=== PATIENT | female | born 1960 | race Caucasian/White ===

== ENCOUNTER 2018-01-31 11:37 | Inpatient (IN) ==
--- NOTE | 2018-01-31 12:02 | Emergency Department Note ---
Disposition Clinical Impression: Acute nontraumatic kidney injury, Bladder cancer metastasized to intra- abdominal lymph nodes Hydronephrosis Qualifiers: Hydronephrosis type: unspecified Qualified Code(s): N13.30 - Unspecified hydronephrosis Disposition: Admitted As Inpatient Condition: Fair Referrals: Robbi Laura MD [Primary Care Provider] - Forms: ED Satisfaction Letter Time of Disposition: 14:41 General Adult HPI - General Chief complaint: ED Recheck/Abnormal Lab/Rx Stated complaint: Abnormal Labs Time Seen by Provider: 01/31/18 11:47 Nursing Notes Reviewed: Yes Vital Signs Reviewed: Yes - History of Present Illness HPI Narrative: Patient's a 57-year-old female with history of bladder cancer who presents from oncology office with concern for creatinine of 6.79. Patient states that recently she has felt nauseated with vomiting and decreased oral intake. She is undergoing chemotherapy, with plan for second round of chemotherapy today. She states she states has been making only minimal urine and earlier this week there was a pink tinge to her urine. Otherwise she denies any chest pain, shortness breath, fever Pain Scale: 7 - Related Data Home Medications Medication Instructions Recorded Confirmed RX: Albuterol Sulfate [Ventolin 2 puff IH Q6H PRN 11/20/17 01/31/18 Hfa] RX: Fluticasone Propionate Nasal 1 spr NS DAILY PRN 11/20/17 01/31/18 [Flonase] RX: Loratadine [Claritin] 10 mg PO DAILY PRN 11/20/17 01/31/18 RX: Tiotropium [place] [Spiriva 1 puff IH DAILY 11/20/17 01/31/18 Respimat] RX: Omeprazole 20 mg PO DAILY 01/31/18 01/31/18 Previous Rx's Medication Instructions Recorded Morphine Sulfate SR (12 HR) [MS 1 tab PO Q12HR 30 Days #60 tab 12/28/17 Contin] Prochlorperazine Maleate 10 mg PO Q6HR PRN #30 tablet 01/03/18 [Compazine] RX: Magic Mouthwash 5 ml PO Q4H PRN #240 ml 01/03/18 RX: Ondansetron ODT [Zofran ODT] 4 mg SL Q6HR #20 tab.rapdis 10/04/18 Ondansetron [Zofran] 8 mg PO Q8HR PRN #30 tablet 01/10/18 Cholecalciferol (Vitamin D3) 50,000 unit PO QWEEK #12 capsule 01/21/18 [Vitamin D] RX: Oxycodone HCl [Roxybond] 15 mg PO Q8H PRN 30 Days #90 01/31/18 tablet.orl Allergies Allergy/AdvReac Type Severity Reaction Status Date / Time adhesive Allergy Unknown Hives Verified 01/31/18 13:26 Sulfa (Sulfonamide Allergy Unknown Hives Verified 01/31/18 13:26 Antibiotics) Past Medical History - Past Medical History Medical history: Reports: cancer, thyroid disease Psychiatric history: Reports: anxiety, bipolar, depression, other - Social History Smoking Status: Current every day smoker Smokeless Tobacco Status: No Alcohol use: Reports: occasionally Drug use: Reports: none, prescription drug abuse Physical Exam - General Limitations: no limitations General appearance: alert, anxious, cachectic - Head Head exam: atraumatic, normocephalic - Eye Eye exam: Present: normal appearance - ENT ENT exam: mucous membranes dry, other (Poor dentition) - Neck Neck exam: Present: normal inspection - Chest Chest inspection: Absent: tenderness - Respiratory Respiratory exam: Present: normal lung sounds bilaterally. Absent: respiratory distress, wheezes - Cardiovascular Cardiovascular exam: Present: regular rate, normal rhythm, normal heart sounds - Abdominal Exam Abdominal exam: Present: soft, Non-Tender, normal bowel sounds. Absent: distention, guarding, rebound - Extremities Exam Extremities exam: Present: normal inspection, pedal edema - Neurological Exam Neurological exam: Present: alert, oriented X3, normal gait - Psychiatric Psychiatric exam: Present: normal mood, anxious - Expanded Psychiatric Exam Expanded psych exam: Present: restlessness - Skin Skin exam: Present: warm, dry, intact Course - Reevaluation(s) Time: 14:21 Time: 14:41 - Consultations Consultation #1: Discussed case with Dr. Fernandez, urology who will evaluate the patient on admission. Requests PT/INR. Time: 14:21 Consultation #2: Discussed case with Dr. Ascencio, carrier associate who will evaluate the patient Time: 14:26 Consultation #3: Discussed case with hospitalist, Dr. Young who will admit the patient Time: 14:42 Vital Signs Temperature 98 F 01/31/18 11:41 Pulse Rate 107 01/31/18 11:41 Respiratory Rate 22 01/31/18 11:41 Blood Pressure 162/113 01/31/18 11:41 O2 Sat by Pulse Oximetry 99 01/31/18 11:41 Temperature 98 F 01/31/18 12:11 Pulse Rate 86 01/31/18 12:59 Respiratory Rate 18 01/31/18 12:59 Blood Pressure 163/106 01/31/18 12:59 O2 Sat by Pulse Oximetry 99 01/31/18 12:59 Oxygen Delivery Oxygen Delivery Room Air Medical Decision Making - MDM Narrative Medical decision making narrative: 57-year-old female with bladder cancer and new onset right-sided hydronephrosis and acute kidney injury with creatinine up to 6.7. Her lab results are otherwise unremarkable. This is likely a combination of prerenal and post renal pathology given her dehydrated status as well as obstructive pathology. We have given gentle bolus of 500 mL in the emergency department and controlled her nausea with Phenergan. I discussed the case with urology, Dr. Fernandez as well as nephrology, Dr. Ascencio who will assess the patient for further intervention. Patient will require admission and discussed the case with hospitalist, Dr. Young who has accepted the patient. The patient agrees with and understands course of treatment plan including plan for admission. All questions answered. - Medical Records Medical records reviewed: Yes I reviewed the patient's medical records. - Lab Data Lab results reviewed: Yes I reviewed the patient's lab results. Lab Results 01/31/18 01/31/18 Range/Units 12:30 14:40 PT 10.9 (9.4-12.1) Seconds INR 1.0 Urine Color Yellow (Yellow) Urine Clarity Turbid A (Clear) Urine pH 8.0 (5.0-8.0) pH Units Ur Specific [place] < 1.005 L (1.010-1.025) Urine Protein 100 H (Neg-Trace) mg/dL Urine Glucose (UA) Normal (Normal) mg/dL Urine Ketones Negative (Negative) mg/dL Urine Blood Large H (Negative) Urine Nitrite Negative (Negative) Urine Bilirubin Negative (Negative) Urine Urobilinogen Normal (Normal) mg/dL Ur Leukocyte Esterase Large H (Negative) Urine Microscopic RBC Present (0-3) per hpf Urine Microscopic WBC TNTC H (0-3) per hpf Ur Squamous Epith Cells Many H (None-Few) per lpf Ur Transition Epith Cell Present (None-Few) per hpf Ur Renal Epithelial Cell Present (None-Few) per hpf Urine Bacteria Many H (None-Few) per hpf Ur Culture Indicated? NO. A (NO) - Radiology Data Radiology results reviewed: Yes I reviewed the patient's radiology results. Abdomen/Pelvis CT 01/31/18 12:59 IMPRESSION: 1. Irregular bladder wall thickening compatible with known bladder cancer with interval development of right hydroureteronephrosis. 2. Chronic left hydroureteronephrosis. 3. Progression skeletal metastasis as discussed above with pathologic fracture through the T12 vertebral body. 4. Retroperitoneal lymphadenopathy which is difficult to measure but appears to have worsened. Contrast enhanced CT scan abdomen and pelvis would be helpful for further evaluation. D/ / Caesar Lizama MD / Caesar Lizama MD Interpreting Provider: Caesar Lizama MD
--- NOTE | 2018-01-31 12:08 | Emergency Department Note ---
Disposition Clinical Impression: Hydronephrosis, Acute nontraumatic kidney injury, Bladder cancer metastasized to intra-abdominal lymph nodes Disposition: Admitted As Inpatient Condition: Fair General Adult HPI - General Chief complaint: ED Recheck/Abnormal Lab/Rx Stated complaint: Abnormal Labs Time Seen by Provider: 01/31/18 11:47 - History of Present Illness Pain Scale: 7 - Related Data Home Medications Medication Instructions Recorded Confirmed RX: Albuterol Sulfate [Ventolin 2 puff IH Q6H PRN 11/20/17 01/31/18 Hfa] RX: Fluticasone Propionate Nasal 1 spr NS DAILY PRN 11/20/17 01/31/18 [Flonase] RX: Loratadine [Claritin] 10 mg PO DAILY PRN 11/20/17 01/31/18 RX: Tiotropium [place] [Spiriva 1 puff IH DAILY 11/20/17 01/31/18 Respimat] RX: Omeprazole 20 mg PO DAILY 01/31/18 01/31/18 Previous Rx's Medication Instructions Recorded Morphine Sulfate SR (12 HR) [MS 1 tab PO Q12HR 30 Days #60 tab 12/28/17 Contin] Prochlorperazine Maleate 10 mg PO Q6HR PRN #30 tablet 01/03/18 [Compazine] RX: Magic Mouthwash 5 ml PO Q4H PRN #240 ml 01/03/18 RX: Ondansetron ODT [Zofran ODT] 4 mg SL Q6HR #20 tab.rapdis 01/03/18 Ondansetron [Zofran] 8 mg PO Q8HR PRN #30 tablet 01/10/18 Cholecalciferol (Vitamin D3) 50,000 unit PO QWEEK #12 capsule 01/21/18 [Vitamin D] RX: Oxycodone HCl [Roxybond] 15 mg PO Q8H PRN 30 Days #90 01/31/18 tablet.orl Allergies Allergy/AdvReac Type Severity Reaction Status Date / Time adhesive Allergy Unknown Hives Verified 01/31/18 13:26 Sulfa (Sulfonamide Allergy Unknown Hives Verified 01/31/18 13:26 Antibiotics) Past Medical History - Past Medical History Medical history: Reports: cancer, thyroid disease Psychiatric history: Reports: anxiety, bipolar, depression, other - Social History Smoking Status: Current every day smoker Smokeless Tobacco Status: No Alcohol use: Reports: occasionally Drug use: Reports: none, prescription drug abuse Course Vital Signs Temperature 98 F 01/31/18 11:41 Pulse Rate 107 01/31/18 11:41 Respiratory Rate 22 01/31/18 11:41 Blood Pressure 162/113 01/31/18 11:41 O2 Sat by Pulse Oximetry 99 01/31/18 11:41 Temperature 98.4 F 01/31/18 20:20 Pulse Rate 85 01/31/18 20:20 Respiratory Rate 16 01/31/18 20:20 Blood Pressure 144/99 01/31/18 20:20 O2 Sat by Pulse Oximetry 97 01/31/18 20:20 Oxygen Delivery Oxygen Delivery Room Air Medical Decision Making - Lab Data Result diagrams: 01/31/18 19:46 Lab Results 01/31/18 01/31/18 Range/Units 12:30 14:40 PT 10.9 (9.4-12.1) Seconds INR 1.0 Urine Color Yellow (Yellow) Urine Clarity Turbid A (Clear) Urine pH 8.0 (5.0-8.0) pH Units Ur Specific [place] < 1.005 L (1.010-1.025) Urine Protein 100 H (Neg-Trace) mg/dL Urine Glucose (UA) Normal (Normal) mg/dL Urine Ketones Negative (Negative) mg/dL Urine Blood Large H (Negative) Urine Nitrite Negative (Negative) Urine Bilirubin Negative (Negative) Urine Urobilinogen Normal (Normal) mg/dL Ur Leukocyte Esterase Large H (Negative) Urine Microscopic RBC Present (0-3) per hpf Urine Microscopic WBC TNTC H (0-3) per hpf Ur Squamous Epith Cells Many H (None-Few) per lpf Ur Transition Epith Cell Present (None-Few) per hpf Ur Renal Epithelial Cell Present (None-Few) per hpf Urine Bacteria Many H (None-Few) per hpf Ur Culture Indicated? NO. A (NO) Attestation Statement - Attestation Attestation: I examined this patient and my medical decision-making was reviewed with the Resident Physician. I agree with the documented findings, disposition and treatment plan as described except to the extent set forth below. [id number] time provided Patient presents after having an outpatient elevated creatinine. She has a recent history of bladder cancer. She is anxious appearing on exam
[2018-01-31] MEDS ORDERED: 0.9 % Sodium Chloride 500 ML IVC ONE (12:18)
[2018-01-31 12:59] LABS: Bilirubin,Urine Negative (Negative); Blood,Urine Large (Negative); Clarity,Urine Turbid (Clear); Color,Urine Yellow (Yellow); Glucose,Urine (UA) Normal (Normal); Ketones,Urine Negative (Negative); Leukocyte Esterase,Urine Large (Negative); Nitrite,Urine Negative (Negative); Protein,Urine 100 mg/dL (Neg-Trace); Specific Gravity,Urine < 1.005 (1.010-1.025); Urobilinogen,Urine Normal (Normal)
[2018-01-31 13:02] LABS: Bacteria,Urine Many per hpf (None-Few); Squamous Epithelial Cell,Urine Many per lpf (None-Few); WBC,Urine TNTC per hpf (0-3)
[2018-01-31 13:20] LABS: RBC,Urine Present per hpf (0-3)
[2018-01-31 13:21] LABS: Renal Epithelial Cells,Urine Present per hpf (None-Few); Transitional Epi Cells,Urine Present per hpf (None-Few)
[2018-01-31] MEDS ORDERED: *HR* Promethazine 25 MG/ML VIAL IVP ONE (14:29)
[2018-01-31] MEDS ORDERED: Naloxone 0.4 MG/ML INJ IVP PRN (14:46)
[2018-01-31] MEDS ORDERED: *HR* OxyCODONE Immed Rel 5 MG TABLET PO PRN (14:46)
[2018-01-31] MEDS ORDERED: *HR* HYDROcodone/Acet 5/325 mg TABLET PO PRN (14:46)
[2018-01-31] MEDS ORDERED: *HR* Promethazine 25 MG/ML VIAL IVP PRN (14:46)
[2018-01-31] MEDS ORDERED: Ondansetron 4 MG/2 ML VIAL IVP PRN (14:46)
[2018-01-31] MEDS ORDERED: Acetaminophen 325 MG TABLET PO PRN ×2 (14:46)
[2018-01-31] MEDS ORDERED: Magic Mouthwash 10 ML UD Cup PO PRN (14:49)
[2018-01-31] MEDS ORDERED: Fluticasone Propionate Nasal 50 MCG/SPRAY BOTTLE NS PRN (14:49)
[2018-01-31] MEDS ORDERED: Loratadine 10 MG TABLET PO PRN (14:49)
[2018-01-31 15:08] LABS: Prothrombin Time 10.9 Seconds (9.4-12.1)
--- NOTE | 2018-01-31 15:09 | Urology - Consult Note ---
Addendum entered and electronically signed by Juanjo Fernandez MD 01/31/18 19:08: Patient was seen and examined with the physicians spa assistant manager. I agree with her assessment and plan. The patient is a 57-year-old woman who is well known to the urology service with metastatic urothelial cancer. She has had chronic left hydronephrosis, but now has new onset right hydronephrosis. Her creatinine has quickly risen to 6.79. She is otherwise hemodynamically stable. Her volume status is okay. Given the severity of the cancer in her bladder, I think attempts at bilateral ureteral stent placement will not be successful. Therefore, I recommend proceeding with bilateral nephrostomy tube placements. I discussed this procedure in detail with the patient. Interventional radiology has been counseled to and is aware. I answered all of her questions about the expected course of the nephrostomy tubes. She understands that an attempt may be made in the future to internalize with ureteral stents placed antegrade. However, given her cancer the stents could obstruct and could require her to have nephrostomy tubes replaced. I did my best to answer all of her questions. We will continue to follow along. Original Note: Date of Encounter: 01/31/18 Time of Encounter: 15:07 - Assessment and Plan (1) Hydronephrosis Current Visit: Yes Status: Acute Assessment and plan: Patient is a 57-year-old female who presents the history of bilateral severe hydronephrosis. Reviewed CT findings and abnormal laboratory findings with patient at bedside. Reviewed operative note from Dr. Patton regarding invisibility of left ureteral orifice. Patient is being admitted and will likely undergo bilateral nephrostomy tube placement for immediate decompression. We will further discuss and evaluate for possible bilateral antegrade stent placement. Patient will remain nothing by mouth after midnight. We will proceed with consult interventional radiology. Qualifiers: Hydronephrosis type: unspecified Qualified Code(s): N13.30 - Unspecified hydronephrosis (2) Metastatic urothelial carcinoma Current Visit: Yes Status: Acute Assessment and plan: Patient is a 57-year-old female who presents with the history of metastatic urothelial carcinoma and bilateral severe hydronephrosis. Patient is currently being treated by [facility] and is on palliative care. Discussed options with patient and explained retrograde stent placement may be very difficult or unsuccessful due to invisibility of left ureteral orifice and bladder tumor. Patient verbalizes understanding, and agrees to interventional radiology consult. Urology CN:LUCIANO Consult date: 01/31/18 Reason for consult Urology: Hydronephrosis (severe bilateral hydronephrosis, bladder cancer) History of present illness: Patient is a 57-year-old female who presents with a history of metastatic urothelial carcinoma. Patient is being treated by medical oncology at [facility]. Patient presented to oncology appointment today and complained of fatigue, nausea, vomiting and decreased urine output. Patient's oncologist ordered labs and found a markedly elevated creatinine level of 6.79 and GFR of 6. Patient was sent directly to the emergency department for further evaluation. Patient is status post transurethral resection of bladder tumor on 11/20/2017 and status post positive lymph node biopsy on 12/20/2017. Patient is currently resting comfortably in no apparent distress and states Phenergan alleviating nausea and vomiting. Patient denies fever, chills, flank pain, gross hematuria. Past Med Surg Social Fam HX - Past Medical History Medical history: cancer, thyroid disease Additional medical history: bladder CA Psychiatric history: anxiety, bipolar, depression, other - Past Surgical History Additional surgical history: tonsilectomy. peg tube - Social History Smoking Status: Current every day smoker Smokeless Tobacco Status: No Alcohol use: occasionally Drug use: none, prescription drug abuse Medications and Allergies Albuterol Sulfate [Ventolin Hfa] 2 puff IH Q6H PRN 11/20/17 [History] Fluticasone Propionate Nasal [Flonase] 1 spr NS DAILY PRN 11/20/17 [History] Loratadine [Claritin] 10 mg PO DAILY PRN 11/20/17 [History] Tiotropium [place] [Spiriva Respimat] 1 puff IH DAILY 11/20/17 [History] Morphine Sulfate SR (12 HR) [MS Contin] 1 tab PO Q12HR 30 Days #60 tab 12/28/17 [Rx] Magic Mouthwash 5 ml PO Q4H PRN #240 ml 01/03/18 [Rx] Ondansetron ODT [Zofran ODT] 4 mg SL Q6HR #20 tab.rapdis 01/03/18 [Rx] Prochlorperazine Maleate [Compazine] 10 mg PO Q6HR PRN #30 tablet 01/03/18 [Rx] Ondansetron [Zofran] 8 mg PO Q8HR PRN #30 tablet 01/10/18 [Rx] Cholecalciferol (Vitamin D3) [Vitamin D] 50,000 unit PO QWEEK #12 capsule 01/21/18 [Rx] Omeprazole 20 mg PO DAILY 01/31/18 [History] Oxycodone HCl [Roxybond] 15 mg PO Q8H PRN 30 Days #90 tablet.orl 01/31/18 [Rx] Allergy/AdvReac Type Severity Reaction Status Date / Time adhesive Allergy Unknown Hives Verified 01/31/18 13:26 Sulfa (Sulfonamide Allergy Unknown Hives Verified 01/31/18 13:26 Antibiotics) Review of Systems - Constitutional fatigue, no chills, no fever(s) - EENT Nose, mouth and throat: no dizziness, no headache(s), no sore throat - Cardiovascular no chest pain, no diaphoresis, no dyspnea - Respiratory no cough, no dyspnea - Gastrointestinal nausea, vomiting, no abdominal pain - Musculoskeletal no back pain, no muscle weakness - Integumentary no rash, no swelling - Neurological no confusion, no syncope - Psychiatric no anxiety, no confusion - Hematologic/Lymphatic no easy bleeding, no easy bruising - Allergic/Immunologic no throat swelling, no wheezing Exam Initial Vital Signs Temp Pulse Resp BP Pulse Ox 98 F 107 22 162/113 99 01/31/18 11:41 01/31/18 11:41 01/31/18 11:41 01/31/18 11:41 01/31/18 11:41 - General physical appearance Present: no distress, chronically ill - Eyes Present: PERRL, normal ocular movement - ENT Present: normal nares, no hearing loss, no congestion - Neck Present: no masses, trachea midline - Respiratory Present: normal respiratory effort - Cardiovascular Cardiovascular exam IM: RRR - Abdomen Abdomen: Present: soft, non tender - Integumentary Present: no rash, no abnormal pigmentation - Neurologic Present: normal coordination, other - Musculoskeletal Present: other (normal posture ) - Additional Findings patient seems very anxious and talkative Urology Results - Labs Abnormal lab results Urine Clarity Turbid (Clear) A 01/31/18 12:30 Ur Specific [place] < 1.005 (1.010-1.025) L 01/31/18 12:30 Urine Protein 100 mg/dL (Neg-Trace) H 01/31/18 12:30 Urine Blood Large (Negative) H 01/31/18 12:30 Ur Leukocyte Esterase Large (Negative) H 01/31/18 12:30 Urine Microscopic WBC TNTC per hpf (0-3) H 01/31/18 12:30 Ur Squamous Epith Cells Many per lpf (None-Few) H 01/31/18 12:30 Urine Bacteria Many per hpf (None-Few) H 01/31/18 12:30 Ur Culture Indicated? NO. (NO) A 01/31/18 12:30 All other labs normal. - Imaging CT scan - abdomen: report reviewed, image reviewed CT scan - pelvis: report reviewed, image reviewed Consult Discharge Plan - Plan Referrals: Robbi Laura MD [Primary Care Provider] -
--- NOTE | 2018-01-31 15:18 | Nephrology Consult Note ---
Date of Encounter: 01/31/18 Time of Encounter: 15:15 Assessment and Plan (1) AYDEN (acute kidney injury) Current Visit: Yes Status: Acute Suspect decreased kidney function from hydronephrosis Awaiting urology interventions-suspect kidney function will improve once obstructions gone (2) Hydronephrosis Current Visit: Yes Status: Acute per urology team Qualifiers: Hydronephrosis type: unspecified Qualified Code(s): N13.30 - Unspecified hydronephrosis (3) Bladder cancer metastasized to intra-abdominal lymph nodes Current Visit: Yes Status: Acute per oncology team History of Present Illness - Reason for Consult Consult date: 01/31/18 - Chief Complaint hydronephrosis, AYDEN - History of Present Illness Ms Eldridge is a 57 year old lady with a history of bladder cancer and chronic left hydroureteronephrosis who was sent over the [facility] ED for a Scr of 6.79. No history of CKD. CT scan shows a new left sided hydronehprosis and urology has been consults. ED report states urology plans to place bilateral tubes with possible future stents. Past Med Surg Social Fam HX - Past Medical History Medical history: cancer, thyroid disease Additional medical history: bladder CA Psychiatric history: anxiety, bipolar, depression, other - Past Surgical History Additional surgical history: tonsilectomy. peg tube - Social History Smoking Status: Current every day smoker Smokeless Tobacco Status: No Alcohol use: occasionally Drug use: none, prescription drug abuse Medications and Allergies Albuterol Sulfate [Ventolin Hfa] 2 puff IH Q6H PRN 11/20/17 [History] Fluticasone Propionate Nasal [Flonase] 1 spr NS DAILY PRN 11/20/17 [History] Loratadine [Claritin] 10 mg PO DAILY PRN 11/20/17 [History] Tiotropium [place] [Spiriva Respimat] 1 puff IH DAILY 11/20/17 [History] Morphine Sulfate SR (12 HR) [MS Contin] 1 tab PO Q12HR 30 Days #60 tab 12/28/17 [Rx] Magic Mouthwash 5 ml PO Q4H PRN #240 ml 01/03/18 [Rx] Ondansetron ODT [Zofran ODT] 4 mg SL Q6HR #20 tab.rapdis 01/03/18 [Rx] Prochlorperazine Maleate [Compazine] 10 mg PO Q6HR PRN #30 tablet 01/03/18 [Rx] Ondansetron [Zofran] 8 mg PO Q8HR PRN #30 tablet 01/10/18 [Rx] Cholecalciferol (Vitamin D3) [Vitamin D] 50,000 unit PO QWEEK #12 capsule 01/21/18 [Rx] Omeprazole 20 mg PO DAILY 01/31/18 [History] Oxycodone HCl [Roxybond] 15 mg PO Q8H PRN 30 Days #90 tablet.orl 01/31/18 [Rx] Allergy/AdvReac Type Severity Reaction Status Date / Time adhesive Allergy Unknown Hives Verified 01/31/18 13:26 Sulfa (Sulfonamide Allergy Unknown Hives Verified 01/31/18 13:26 Antibiotics) Review of Systems All Systems: reviewed and no additional remarkable complaints except as stated Constitutional: no fatigue, no malaise Cardiovascular: no chest pain, no dyspnea Respiratory: no cough, no wheezing Gastrointestinal: no diarrhea Neurological: no behavioral changes Exam - Vital Signs Vital signs: Initial Vital Signs Temp Pulse Resp BP Pulse Ox 98 F 107 22 162/113 99 01/31/18 11:41 01/31/18 11:41 01/31/18 11:41 01/31/18 11:41 01/31/18 11:41 Vital Signs - Last 8 Hours Temp Pulse Resp BP Pulse Ox 01/31/18 12:59 86 18 163/106 99 01/31/18 12:11 98 F 107 22 162/113 99 01/31/18 11:41 98 F 107 22 162/113 99 Intake and Output 01/30/18 01/31/18 01/31/18 23:59 07:59 15:59 Intake Total 500 / 500 Balance 500 / 500 Intake: IV Fluids 500 / 500 0.9 % Sodium Chloride 500 ML @ 500 / 500 999 mls/hr IVC .Q31M ONE Rx#: [id number] Other: Weight 46.72 kg Patient Weight 01/31/18 23:59 Weight 46.72 kg - General Appearance General appearance: well-developed, well-nourished EENT: ATNC, mucous membranes moist, hearing intact, vision intact Neck: supple Respiratory: clear Cardiology: no edema, normal S1, normal S2 Gastrointestinal: no tenderness, no guarding Integumentary: warm and dry Neurologic: alert and oriented x3 Psychiatric: mood/affect appropriate, cooperative Consult Discharge Plan - Plan Referrals: Robbi Laura MD [Primary Care Provider] -
--- NOTE | 2018-01-31 16:54 | Internal Med History&Physical ---
Date of Encounter: 01/31/18 Time of Encounter: 14:30 Internal Medicine - H&P: HPI Chief complaint: weakness, abnormal labs Admitted From: Emergency Dept Plans for Post Hospital Care: Home History of present illness: Ms. Eldridge is a 57 year old female with a known history of anxiety, bipolar, hypothyroidism and metastatic urothelial carcinoma s/p bladder tumor trans urethral resection on who is currnetly on 2nd cycle of chemo therapy pt went to see Dr. Laura for f/u regarding chemo. Her labs came back as severe AYDEN with Cr @ 6.78. She also mentioned from past one week, she has not eating well and feeling weak and lethargic. Pt was sent to our ER for further work up. Her CT of Abd and Pelvis showed irregular bladder wall thickening compatible with a known bladder cancer with internal development of right [place] ureter hydronephrosis. Also have chronic left hydronephrosis. Patient denies fever, chills, flank pain, gross hematuria. Past Med Surg Social Fam HX - Past Medical History Medical history: cancer, thyroid disease Additional medical history: bladder CA Psychiatric history: anxiety, bipolar, depression, other - Past Surgical History Additional surgical history: tonsilectomy. peg tube - Social History Smoking Status: Current every day smoker Smokeless Tobacco Status: No Alcohol use: occasionally Drug use: none, prescription drug abuse - Additional Family History Additional family history: Family hsitory reviewed and non contribuitory to current problem. Internal Medicine - H&P: Meds Albuterol Sulfate [Ventolin Hfa] 2 puff IH Q6H PRN 11/20/17 [History] Fluticasone Propionate Nasal [Flonase] 1 spr NS DAILY PRN 11/20/17 [History] Loratadine [Claritin] 10 mg PO DAILY PRN 11/20/17 [History] Tiotropium [place] [Spiriva Respimat] 1 puff IH DAILY 11/20/17 [History] Morphine Sulfate SR (12 HR) [MS Contin] 1 tab PO Q12HR 30 Days #60 tab 12/28/17 [Rx] Magic Mouthwash 5 ml PO Q4H PRN #240 ml 01/03/18 [Rx] Ondansetron ODT [Zofran ODT] 4 mg SL Q6HR #20 tab.rapdis 01/03/18 [Rx] Prochlorperazine Maleate [Compazine] 10 mg PO Q6HR PRN #30 tablet 01/03/18 [Rx] Ondansetron [Zofran] 8 mg PO Q8HR PRN #30 tablet 01/10/18 [Rx] Cholecalciferol (Vitamin D3) [Vitamin D] 50,000 unit PO QWEEK #12 capsule 01/21/18 [Rx] Omeprazole 20 mg PO DAILY 01/31/18 [History] Oxycodone HCl [Roxybond] 15 mg PO Q8H PRN 30 Days #90 tablet.orl 01/31/18 [Rx] Allergy/AdvReac Type Severity Reaction Status Date / Time adhesive Allergy Unknown Hives Verified 01/31/18 13:26 Sulfa (Sulfonamide Allergy Unknown Hives Verified 01/31/18 13:26 Antibiotics) All Systems PM: A 10-system review of systems was performed and is negative for pertinent findings except as documented above in the HPI. Review of systems: All the systems are reviewed everything is benign except the systems and symptoms I mentioned in the history of present illness - Constitutional Vitals: Temp Pulse Resp BP Pulse Ox 98 F 86 18 163/106 99 01/31/18 12:11 01/31/18 12:59 01/31/18 12:59 01/31/18 12:59 01/31/18 12:59 General appearance: Present: cooperative, mild distress (Pain), A&O X 3, answers questions appropriately Exam: See below - Head Head exam: Present: atraumatic, normal inspection - Neck Neck exam general surgery: Present: supple - Respiratory Respiratory exam: Present: decreased breath sounds. Absent: rales, respiratory distress, rhonchi, wheezes - Cardiovascular Cardiovascular exam: Present: RRR, +S1, +S2. Absent: tachycardia - GI/Abdominal GI/Abdominal exam: Present: normal bowel sounds, soft. Absent: rebound, rigid, tenderness - Extremities Exam Extremities exam: Absent: calf tenderness, pedal edema, tenderness - Back Exam Back exam: Present: CVA tenderness (L). Absent: CVA tenderness (R) - Neurological Exam Neurological exam: Present: alert, oriented X3 - Psychiatric Psychiatric exam: Present: anxious, depressed - Skin Skin exam: Absent: rash Internal Med - H&P Results - Labs Labs: Urine 01/31/18 Range/Units 12:30 Urine Color Yellow (Yellow) Urine Clarity Turbid A (Clear) Urine pH 8.0 (5.0-8.0) pH Units Ur Specific [place] < 1.005 L (1.010-1.025) Urine Protein 100 H (Neg-Trace) mg/dL Urine Glucose (UA) Normal (Normal) mg/dL - Impressions ITS Impressions Abdomen/Pelvis CT 01/31/18 12:59 IMPRESSION: 1. Irregular bladder wall thickening compatible with known bladder cancer with interval development of right hydroureteronephrosis. 2. Chronic left hydroureteronephrosis. 3. Progression skeletal metastasis as discussed above with pathologic fracture through the T12 vertebral body. 4. Retroperitoneal lymphadenopathy which is difficult to measure but appears to have worsened. Contrast enhanced CT scan abdomen and pelvis would be helpful for further evaluation. D/ / Caesar Lizama MD / Caesar Lizama MD Interpreting Provider: Caesar Lizama MD - Assessment and plan (1) AYDEN (acute kidney injury) Current Visit: Yes Status: Acute Assessment and plan: Admit the pt into tele her AK multifactorial with hypovolemia and obstructive uropathy started on IV hydration provide nephrotoxic medications touch up painter hand consulted- appreciate recommendations strict I & O close f/u on on Cr and electrolytes (2) Obstructive uropathy Current Visit: Yes Status: Acute Assessment and plan: Due to bladder cancer Talked to urology -- Will ask IR to place b/l nephrostomy tubes initially later possible stent placement by Urology appreciate Urology recommendations (3) Bladder cancer metastasized to intra-abdominal lymph nodes Current Visit: Yes Status: Acute Assessment and plan: Seems to be overall poor prognosis - stage 4 bladder cancer with Skeletal metastasis -T12 fracture Resumed home pain medication MS Contin + break through pain medication Heme Onc consulted (4) Hydronephrosis Current Visit: Yes Status: Acute Qualifiers: Hydronephrosis type: unspecified Qualified Code(s): N13.30 - Unspecified hydronephrosis (5) Metastatic urothelial carcinoma Current Visit: Yes Status: Acute (6) T12 vertebral fracture Current Visit: Yes Status: Acute Assessment and plan: Due to metastasis PT / OT Pain management Qualifiers: Encounter type: initial encounter Fracture type: closed Qualified Code(s): S22.089A - Unspecified fracture of T11-T12 vertebra, initial encounter for closed fracture - Time Spent With Patient Total time spent is greater than 50% in coordination of care (as documented) at patient's floor/unit and/or counseling patient:
--- NOTE | 2018-01-31 19:18 | Oncology Inp Consult Note ---
Date of Encounter: 01/31/18 Time of Encounter: 19:13 Assessment and Plan (1) Bladder cancer metastasized to intra-abdominal lymph nodes Status: Acute Assessment and plan: Metastatic Urothelial cancer T2, NX, M1 stage IV. PDL one high expression TPS score 90% PDL 90% positive Bone metastasis mainly in the L5 S1 also in the bilateral ribs This is stage IV disease and cannot be cured. First-line treatment Intent: Palliative Cycle repeated every 3 weeks Number of cycles: 6 Cisplatin 60 mg/m IV day 1 Gemzar 1 g IV day 1 and 8 She completed cycle 1 on 01/17/2018 Currently admitted with acute kidney injury creatinine around 7. She is awaiting percutaneous bilateral nephrostomy tube placement. Urology and nephrology following I discussed with her in detail about importance of bilateral nephrostomy to preserve her kidney function CAT scan abdomen and pelvis 01/31/2018 showed possible progression of lymphadenopathy. Overall prognosis poor. Given the amount of renal insufficiency may switch to second line immunotherapy Atezolizumab or Pembrolizumab (2) Obstructive uropathy Status: Acute Assessment and plan: Bilateral obstructive uropathy with acute kidney injury. She also has urosepsis. Currently on IV Rocephin. Blood cultures and urine cultures pending - Data of Consult Patient: known to practice within the last 3 years Requesting Physician: Irina Jay MD Primary Care Provider: Robbi Laura - Consult Narrative Reason for consult: Metastatic bladder cancer History of present illness: Ms. Eldridge is a 57 year old female Diagnosis: Urothelial/bladder cancer PT2, NX, M1 stage IV Oncological history She is developed hematuria did not resolve with 3 courses of antibiotics Cystoscopy Dr. Patton 11/20/2017 Showed large tumor left lateral wall standing to urethra about 7 cm- resected Also small tumors in the right lateral wall apparently not resected Pathology bladder tumor transurethral resection on 11/20/2017 Showed high-grade urothelial carcinoma with squamous differentiation Invading detrusor muscle. Focal suspicion for lymphovascular invasion Retroperitoneal lymph node biopsy 12/20/2017 showed metastatic urothelial carcinoma squamous differentiation similar to the bladder primary PDL one testing showed TPS score more than 90% CT abdomen and pelvis with and without contrast on 11/26/2017 Severe left hydroureteronephrosis to the level of the left ureterovesicular junction. Delayed left nephrogram, consistent with obstructive uropathy. Retroperitoneal adenopathy, including retrocrural, periaortic, and bilateral iliac adenopathy is consistent with metastatic disease, likely related to TCC and less likely related to prior head and neck cancer. PET scan on 12/26/2017 showed metabolically active mediastinal and extensive r etroperitoneal adenopathy. 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 Concurrent chemoradiation with cisplatin 100 mg/m2, three doses 08/24/2010 to 10/13/2010, She also has a small right upper lobe lung nodule 3 mm Which is stable and is a calcified granuloma Past Medical History Medical history: Cancer - Head and Neck Surgical History tonsillectomy, PEG tube placement PSYCH History: bipolar, depression Family History: Family history includes: Mother had degenerative joint disease and father had alcohol abuse and skin cancer in the nose. Father also had heart disease. She does not speak much to either one of them. She is accompanied by her knpcla-nz-rdh, Kristi, who pretty much takes her to all of her appointments. SOCIAL HISTORY Tobacco use?: continued to smoke, trying to quit Alcohol use?: hx of alcohol abuse, sober since 2010 Drug use?: none Social history comments: Marital status: Single Occupation and status: Works for [employer] Living situation: Lives with boyfriend in [place] Past Med Surg Social Fam HX - Past Medical History Medical history: cancer, thyroid disease Additional medical history: bladder CA Psychiatric history: anxiety, bipolar, depression, other - Past Surgical History Additional surgical history: tonsilectomy. peg tube - Social History Smoking Status: Current every day smoker Smokeless Tobacco Status: No Alcohol use: occasionally Drug use: none, prescription drug abuse Medications and Allergies Albuterol Sulfate [Ventolin Hfa] 2 puff IH Q6H PRN 11/20/17 [History] Fluticasone Propionate Nasal [Flonase] 1 spr NS DAILY PRN 11/20/17 [History] Loratadine [Claritin] 10 mg PO DAILY PRN 11/20/17 [History] Tiotropium [employer] [Spiriva Respimat] 1 puff IH DAILY 11/20/17 [History] Morphine Sulfate SR (12 HR) [MS Contin] 1 tab PO Q12HR 30 Days #60 tab 12/28/17 [Rx] Magic Mouthwash 5 ml PO Q4H PRN #240 ml 01/03/18 [Rx] Ondansetron ODT [Zofran ODT] 4 mg SL Q6HR #20 tab.rapdis 01/03/18 [Rx] Prochlorperazine Maleate [Compazine] 10 mg PO Q6HR PRN #30 tablet 01/03/18 [Rx] Ondansetron [Zofran] 8 mg PO Q8HR PRN #30 tablet 01/10/18 [Rx] Cholecalciferol (Vitamin D3) [Vitamin D] 50,000 unit PO QWEEK #12 capsule 01/21/18 [Rx] Omeprazole 20 mg PO DAILY 01/31/18 [History] Oxycodone HCl [Roxybond] 15 mg PO Q8H PRN 30 Days #90 tablet.orl 01/31/18 [Rx] Allergy/AdvReac Type Severity Reaction Status Date / Time adhesive Allergy Unknown Hives Verified 01/31/18 13:26 Sulfa (Sulfonamide Allergy Unknown Hives Verified 01/31/18 13:26 Antibiotics) Oncology - Exam - Constitutional Vitals: Temp Pulse Resp BP Pulse Ox 98 F 86 16 120/82 99 01/31/18 12:11 01/31/18 12:59 01/31/18 17:11 01/31/18 17:11 01/31/18 12:59 Exam: General: Alert and oriented, mal-nourished Mental Status: Affect appropriate for circumstances HEENT: Sclerae anicteric. No mucositis or thrush. No other oral lesions or erythema. Skin: No rashes or petechiae. Lymph nodes: No cervical, supraclavicular, axillary, or inguinal adenopathy. Lungs: Clear to auscultation and percussion bilaterally. Cardiovascular: Regular rate and rhythm. No gallops, murmurs, or rubs. Abdomen: Soft, mild abdominal tenderness. Extremities: No edema. No calf swelling or tenderness. No joint deformity. Neurologic: Alert, cranial nerves II-XII intact; no focal weakness or sensory abnormalities. Oncology - Results Labs: 01/31/18 01/31/18 14:40 12:30 PT 10.9 INR 1.0 Urine Color Yellow Urine Clarity Turbid A Urine pH 8.0 Ur Specific [place] < 1.005 L Urine Protein 100 H Urine Glucose (UA) Normal Urine Ketones Negative Urine Blood Large H Urine Nitrite Negative Urine Bilirubin Negative Urine Urobilinogen Normal Ur Leukocyte Esterase Large H Urine Microscopic RBC Present Urine Microscopic WBC TNTC H Ur Squamous Epith Cells Many H Ur Transition Epith Cell Present Ur Renal Epithelial Cell Present Urine Bacteria Many H Ur Culture Indicated? NO. A Consult Discharge Plan - Plan Referrals: Robbi Laura MD [Primary Care Provider] - Inpatient Charges Provider: Dr. Sam Laura Consult - Inpatient: [id number]
[2018-01-31] MEDS: *HR* Morphine Sulfate SR (12 HR) 15 MG TABLET.ER PO SCH (19:58)
[2018-01-31] MEDS: cefTRIAXone 1,000 MG in Water for inj. (sterile) 20 ML 10 ML IVP SCH (19:58)
[2018-01-31] MEDS: 0.9 % Sodium Chloride 1,000 ML IVC SCH (19:58)
[2018-01-31 20:18] LABS: Calcium 8.2 mg/dL (8.6-10.3); Magnesium 2.1 mg/dL (1.6-2.6); Potassium 4.4 mEq/L (3.5-5.1)
[2018-02-01 02:54] LABS: Basophils % 0.3 %; Eosinophils # 0.1 K/mcL (0.0-0.6); Eosinophils % 0.8 %; Hematocrit 30.4 % (35.3-44.9); Hemoglobin 10.4 g/dL (11.5-15.4); Immature Granulocytes % 0.5 % (0-4); Lymphocytes # 0.6 K/mcL (0.6-4.6); Lymphocytes % 9.4 %; Mean Corpuscular HGB Conc 34.2 g/dL (31.6-35.5); Mean Corpuscular Hemoglobin 32.7 pg (28.0-33.3); Mean Corpuscular Volume 95.6 fL (83.0-100.0); Mean Platelet Volume 9.1 fL (9.4-12.4); Monocytes # 0.6 K/mcL (0.0-1.3); Monocytes % 9.1 %; Neutrophils # 5.3 K/mcL (1.6-8.9); Platelet Count 258 K/mcL (140-400); Red Blood Count 3.18 M/mcL (3.82-4.97); Red Cell Distribution Width 13.9 % (11.5-14.5); Segmented Neutrophils % 79.9 %
[2018-02-01 03:02] LABS: Magnesium 2.1 mg/dL (1.6-2.6); Potassium 4.3 mEq/L (3.5-5.1)
[2018-02-01] MEDS: 0.9 % Sodium Chloride 1,000 ML IVC SCH ×4 (04:11→23:31)
[2018-02-01] MEDS: *HR* Morphine Sulfate SR (12 HR) 15 MG TABLET.ER PO SCH ×2 (07:07→19:11)
[2018-02-01] MEDS ORDERED: 0.9 % Sodium Chloride 250 ML IVC PRN (07:12)
--- NOTE | 2018-02-01 07:27 | Nephrology Progress Note ---
Date of Encounter: 02/01/18 Time of Encounter: 09:45 - Assessment and Plan (1) AYDEN (acute kidney injury) Current Visit: Yes Status: Acute Severe AYDEN with progressively worsening renal failure s/p Chemo for bladder Ca with hydronephrosis. Now that it's Sunday and the AM labs demonstrate ongoing severe worsening, I also recommend starting temporary HD today with placement of a temporary HD catheter simultaneously while seeing IR for Perc Neph tubes. I've called IR and arranged this today. I also called the floor RN to have the informed consent process initiated regarding her now present indications for dialysis. (2) Hydronephrosis Current Visit: Yes Status: Acute per urology team Qualifiers: Hydronephrosis type: unspecified Qualified Code(s): N13.30 - Unspecified hydronephrosis (3) Bladder cancer metastasized to intra-abdominal lymph nodes Current Visit: Yes Status: Acute per oncology team Subjective Principal diagnosis: AYDEN Interval history: The patient was off the floor. I reviewed her labs, vitals, medication list, progress notes and previous imaging in detail. I discussed my recommendations with the floor nurse who also spoke with the patient earlier today. Objective - Vital Signs Vital signs: Vital Signs Temp Pulse Resp BP Pulse Ox 02/01/18 04:28 98.9 F 92 18 155/100 94 01/31/18 23:12 99.3 F 94 16 141/81 95 01/31/18 20:20 98.4 F 85 16 144/99 97 01/31/18 17:11 16 120/82 01/31/18 12:59 86 18 163/106 99 01/31/18 12:11 98 F 107 22 162/113 99 01/31/18 11:41 98 F 107 22 162/113 99 Intake and Output 01/31/18 01/31/18 02/01/18 15:59 23:59 07:59 Intake Total 500 / 500 1000 / 1000 Balance 500 / 500 1000 / 1000 Intake: IV Fluids 500 / 500 1000 / 1000 0.9 % Sodium Chloride 1,000 ML 1000 / 1000 @ 125 mls/hr IVC .[facility]H [facility] Rx#: [id number] 0.9 % Sodium Chloride 500 ML @ 500 / 500 999 mls/hr IVC .Q31M ONE Rx#: [id number] Other: Weight 46.72 kg 47.4 kg - General Appearance Exam: The patient was off the floor. - Lab 02/01/18 02:32 11 02:32 Most recent lab results Calcium 8.0 mg/dL (8.6-10.3) L 02/01/18 02:32 Phosphorus 7.0 mg/dL (2.7-4.5) H 02/01/18 02:32 Magnesium 2.1 mg/dL (1.6-2.6) 02/01/18 02:32 Consult Discharge Plan - Plan Referrals: Robbi Laura MD [Primary Care Provider] -
--- NOTE | 2018-02-01 08:56 | Urology Progress Note ---
Addendum entered and electronically signed by Juanjo Fernandez MD 02/01/18 14:12: Patient was seen and examined with the physician's assistant manager pt. I agree with the assessment and plan. We will proceed with bilateral nephrostomy tubes today. Urology will follow along. Appreciate nephrology workup. Original Note: Date of Encounter: 02/01/18 Time of Encounter: 07:30 - Assessment and Plan (1) Hydronephrosis Current Visit: Yes Status: Acute Assessment and plan: Patient is a 57-year-old female who presents with a history of bilateral hydronephrosis, worsening on the left and newly developed on the right. Patient's renal function is continuing to decline. Patient has refused dialysis despite consult with nephrology. Interventional radiology is planning bilateral nephrostomy tube placement later today, and patient will remain nothing by mouth. Qualifiers: Hydronephrosis type: unspecified Qualified Code(s): N13.30 - Unspecified hydronephrosis (2) Metastatic urothelial carcinoma Current Visit: Yes Status: Acute Assessment and plan: Patient is a 57-year-old female who presents with a history of metastatic urothelial carcinoma and bilateral hydronephrosis. Retrograde access is not favorable secondary to large bladder tumor and inability to locate left ureteral orifice. The tentative plan is to proceed with bilateral nephrostomy tube placement and possible antegrade ureteral stent placement at a later time. Progress Note Subjective: pain is less Narrative: Patient seen and examined sitting upright in bed in no apparent distress. Patient states she is declining nephrology recommendation of dialysis. Patient states she wishes to proceed only with nephrostomy tube placement at this time. Patient states she is not voiding. Patient denies fever, chills, flank pain, nausea, vomiting, chest pain, dyspnea. Objective Initial Vital Signs Temp Pulse Resp BP Pulse Ox 98 F 107 22 162/113 99 01/31/18 11:41 01/31/18 11:41 01/31/18 11:41 01/31/18 11:41 01/31/18 11:41 - General physical appearance Present: well developed, no distress, no pain - Respiratory Present: normal expansion, normal respiratory effort - Abdomen Present: soft, non tender - Integumentary Present: no rash, no abnormal pigmentation - Musculoskeletal Present: normal posture - Psychiatric Present: oriented to time, oriented to person, oriented to place, speech is normal, memory intact - Labs 02/01/18 02:32 02/01/18 02:32 Diabetes panel 01/31/18 02/01/18 Range/Units 19:46 02:32 Sodium 128 L 129 L (136-145) mEq/L Potassium 4.4 4.3 (3.5-5.1) mEq/L Chloride 94 L 95 L (98-107) mEq/L Carbon Dioxide 22 L 22 L (23-29) mEq/L BUN 45 H 47 H (6-20) mg/dL Creatinine 7.26 H 7.74 H (0.60-1.20) mg/dL Glucose 116 H 108 H (70-105) mg/dL Calcium 8.2 L 8.0 L (8.6-10.3) mg/dL Calcium panel 01/31/18 02/01/18 Range/Units 19:46 02:32 Calcium 8.2 L 8.0 L (8.6-10.3) mg/dL Phosphorus 7.0 H (2.7-4.5) mg/dL Pituitary panel 01/31/18 02/01/18 Range/Units 19:46 02:32 Sodium 128 L 129 L (136-145) mEq/L Potassium 4.4 4.3 (3.5-5.1) mEq/L Chloride 94 L 95 L (98-107) mEq/L Carbon Dioxide 22 L 22 L (23-29) mEq/L BUN 45 H 47 H (6-20) mg/dL Creatinine 7.26 H 7.74 H (0.60-1.20) mg/dL Glucose 116 H 108 H (70-105) mg/dL Calcium 8.2 L 8.0 L (8.6-10.3) mg/dL Adrenal panel 01/31/18 02/01/18 Range/Units 19:46 02:32 Sodium 128 L 129 L (136-145) mEq/L Potassium 4.4 4.3 (3.5-5.1) mEq/L Chloride 94 L 95 L (98-107) mEq/L Carbon Dioxide 22 L 22 L (23-29) mEq/L BUN 45 H 47 H (6-20) mg/dL Creatinine 7.26 H 7.74 H (0.60-1.20) mg/dL Glucose 116 H 108 H (70-105) mg/dL Calcium 8.2 L 8.0 L (8.6-10.3) mg/dL Consult Discharge Plan - Plan Referrals: Robbi Laura MD [Primary Care Provider] -
[2018-02-01] MEDS ORDERED: 0.9 % Sodium Chloride 500 ML ONE (09:08)
[2018-02-01] MEDS ORDERED: (Tiotropium Bromide [Spiriva Respimat] 1 PUFF) IH SCH (10:00)
[2018-02-01] MEDS ORDERED: Sennosides/Docusate Sodium TABLET PO PRN (10:06)
[2018-02-01] MEDS ORDERED: *HR* FentaNYL (PF) 100 MCG/2 ML VIAL IVP ONE (10:21)
[2018-02-01] MEDS ORDERED: *HR* Midazolam HCl 2 MG/2 ML VIAL IVP ONE ×2 (10:21→10:44)
--- NOTE | 2018-02-01 10:22 | Pre-Sedation Evaluation ---
Pre-sedation evaluation - Pre-sedation checklist Procedure: lymph node bx Recent Vitals: Last Vital Signs Temp 98.1 F 02/01/18 07:19 Pulse 95 02/01/18 07:19 Resp 20 02/01/18 07:19 BP 158/100 02/01/18 07:19 Pulse Ox 91 02/01/18 07:19 H&P (including ROS) documented in medical record: Yes Previous reaction to sedatives/anesthetics: No Dietary Status: NPO after Midnight Dentition: No loose teeth or bridges Possible difficult airway: No ASA Classification *see protocol: CLASS II-Mild systemic disease Plan of Care: Pt appropriate candidate for procedure/moderate/conscious sedation, Risks/benefits of procedure/sedation discussed w/ patient/family, If not NPO; Risk of intake outweiged by necessity to perform procedure Cardiac Registry (Cardio Only) - Clincal Frailty Scale Clinical Frailty Scale: Managing Well
[2018-02-01] MEDS: Tiotropium 18 MCG inhalation IH SCH (10:35)
[2018-02-01] MEDS ORDERED: *HR* HYDROmorphone (PF) 1 MG/ML SYRINGE IVP ONE (10:45)
[2018-02-01] MEDS ORDERED: Isovue-300 50 ML VIAL IVP ONE ×2 (10:59)
--- NOTE | 2018-02-01 11:05 | IR Procedure Note ---
Date of procedure: 02/01/18 Consent Obtained: Written consent Timeout: Correct patient and procedure verified, Correct site verified, Time out performed, Skin prep completed Indications: bilateral renal obstruction Procedure Performed: bilateral nephrostomy Was there an litigation assistant present: No Site/Technique: bilateral 10F tubes Results/Findings: Adequate placement Estimated blood loss (cc): 4 Complications: None; Tolerated procedure well Post Procedure Treatment Plan: dc to floor Specimen: none
--- NOTE | 2018-02-01 11:20 | Internal Med Progress Note ---
Hospitalist Progress Note - Encounter Date of Encounter: 02/01/18 Time of Encounter: 08:40 - Subjective Interval History: Anxious for her upcoming procedure, no fever/chills, N/V, or worsening flank pain. - Exam Vitals: Temp Pulse Resp BP Pulse Ox 98.1 F 99 20 156/93 93 02/01/18 07:19 02/01/18 10:54 02/01/18 11:04 02/01/18 11:04 02/01/18 10:54 Exam: General: Alert and oriented, not in acute distress. Cardiovascular:Normal S1 & S2, No JVD. Pulse regular. Lungs: clear to auscultation, no wheezes/rales Abdomen:Soft, non-tender, no rigidity. No CVA tenderness Extremities:No deformity or swelling Neurological:Normal cognition and motor skills. Non-focal - Assessment and Plan (1) Obstructive uropathy Current Visit: Yes Status: Acute Assessment and Plan: Due to met urothelial cancer acute on chronic on the left and acute R hydronephrosis for b/l nephrostomy tube insertion today appreciate Urology and IR input (2) Hydronephrosis Current Visit: Yes Status: Acute Assessment and Plan: as above (3) AYDEN (acute kidney injury) Current Visit: Yes Status: Acute Assessment and Plan: likely due to obstructive uropathy as above +/- pre-renal continue IV hydration avoid nephrotoxic medications crown attacher input appreciated -> offered HD but pt refused For bilateral nephrostomy tube insertion today monitor Cr and urine output (4) Metastatic urothelial carcinoma Current Visit: Yes Status: Acute Assessment and Plan: Oncology input appreciated on palliative chemo currently, may switch to 2nd line immunotherapy outpatent follow up overall prognosis remains poor (5) T12 vertebral fracture Current Visit: Yes Status: Acute Assessment and Plan: Due to metastasis PT / OT Pain management DVT Prophylaxis: SQ heparin - Time Spent with Patient Total time spent is greater than 50% in coordination of care (as documented) at patient's floor/unit and/or counseling patient: Plan of Care Discussed with: patient Internal Medicine: Result - Labs CBC & Chem 7: 02/01/18 02:32 02/01/18 02:32 Labs: Short CBC 02/01/18 Range/Units 02:32 WBC 6.6 (4.3-11.1) K/mcL Hgb 10.4 L (11.5-15.4) g/dL Hct 30.4 L (35.3-44.9) % Plt Count 258 (140-400) K/mcL Neutrophils # 5.3 (1.6-8.9) K/mcL BMP 01/31/18 02/01/18 19:46 02:32 Sodium 128 L 129 L Potassium 4.4 4.3 Chloride 94 L 95 L Carbon Dioxide 22 L 22 L BUN 45 H 47 H Creatinine 7.26 H 7.74 H Glucose 116 H 108 H Calcium 8.2 L 8.0 L Urine 01/31/18 Range/Units 12:30 Urine Color Yellow (Yellow) Urine Clarity Turbid A (Clear) Urine pH 8.0 (5.0-8.0) pH Units Ur Specific [place] < 1.005 L (1.010-1.025) Urine Protein 100 H (Neg-Trace) mg/dL Urine Glucose (UA) Normal (Normal) mg/dL - ABG Interpretation ABG results: PT/INR, D-dimer PT 10.9 Seconds (9.4-12.1) 01/31/18 14:40 - Impressions Impressions Abdomen/Pelvis CT 01/31/18 12:59 IMPRESSION: 1. Irregular bladder wall thickening compatible with known bladder cancer with interval development of right hydroureteronephrosis. 2. Chronic left hydroureteronephrosis. 3. Progression skeletal metastasis as discussed above with pathologic fracture through the T12 vertebral body. 4. Retroperitoneal lymphadenopathy which is difficult to measure but appears to have worsened. Contrast enhanced CT scan abdomen and pelvis would be helpful for further evaluation. D/ / Caesar Lizama MD / Caesar Lizama MD Interpreting Provider: Caesar Lizama MD Consult Discharge Plan - Plan Referrals: Robbi Laura MD [Primary Care Provider] - (2) Hydronephrosis Qualifiers: Hydronephrosis type: unspecified Qualified Code(s): N13.30 - Unspecified hydronephrosis (5) T12 vertebral fracture Qualifiers: Encounter type: initial encounter Fracture type: closed Qualified Code(s): S 22.089A - Unspecified fracture of T11-T12 vertebra, initial encounter for closed fracture
[2018-02-01] MEDS: cefTRIAXone 1,000 MG in Water for inj. (sterile) 20 ML 10 ML IVP SCH (11:27)
[2018-02-01] MEDS: Cholecalciferol (D-3) 1,000 UNIT TABLET PO SCH (11:28)
[2018-02-01] MEDS ORDERED: *HR* LORazepam 2 MG/ML VIAL IVP ONE (16:18)
--- NOTE | 2018-02-01 17:28 | Oncology Inp Progress Note ---
<Amarilis Marroquin L - Last Filed: 02/02/18 07:15> Date of Encounter: 02/01/18 Time of Encounter: 16:00 (1) Metastatic urothelial carcinoma Status: Acute Assessment and plan: Metastatic Urothelial cancer T2, NX, M1 stage IV. PDL one high expression TPS score 90% PDL 90% positive Bone metastasis mainly in the L5 S1 also in the bilateral ribs This is stage IV disease and cannot be cured. First-line treatment Intent: Palliative Cycle repeated every 3 weeks Number of cycles: 6 Cisplatin 60 mg/m IV day 1 Gemzar 1 g IV day 1 and 8 She completed cycle 1 on 01/17/2018 CAT scan abdomen and pelvis 01/31/2018 showed possible progression of lymphadenopathy. Overall prognosis poor. Given the amount of renal insufficiency may switch to second line immunotherapy Atezolizumab or Pembrolizumab (2) Obstructive uropathy Status: Acute Assessment and plan: Urosepsis with AYDEN Expect improvement within renal function with placement of bilateral nephrostomy Blood cultures-pending Urine Culture-pending Currently on rocephin Oncology: Subj Interval history: Ms. Eldridge is sitting up in bed. She reports some mild discomfort from nephrostomy tube placement. She is emotionally labile, verbal support was given. Appetite is adequate, encouraged continued intake and hydration. Denies fever, chills, nausea, vomiting, constipation, diarrhea, chest pain, SOB or calf pain - Constitutional Vitals: Vital Signs Temp Pulse Resp BP Pulse Ox 02/01/18 16:44 99.5 F 115 20 181/98 95 02/01/18 12:05 16 171/99 96 02/01/18 11:50 100 18 153/88 98 02/01/18 11:35 106 16 133/71 91 02/01/18 11:20 97.5 F L 16 145/87 88 02/01/18 11:04 20 156/93 02/01/18 10:54 99 19 160/111 93 02/01/18 10:49 97 22 155/103 91 02/01/18 10:45 96 23 171/101 90 02/01/18 10:31 101 13 183/121 94 02/01/18 07:19 98.1 F 95 20 158/100 91 02/01/18 04:28 98.9 F 92 18 155/100 94 01/31/18 23:12 99.3 F 94 16 141/81 95 01/31/18 20:20 98.4 F 85 16 144/99 97 Intake and Output 02/01/18 02/01/18 02/01/18 07:59 15:59 23:59 Intake Total 1000 / 1000 2009 Output Total 1895 / 1895 Balance 1000 / 1000 115 / 115 Intake: IV Fluids 1000 / 1000 2009 0.9 % Sodium Chloride 1,000 ML 1000 / 1000 2000 / 2000 @ 125 mls/hr IVC .Q8H [facility] Rx#: [id number] Rocephin 1,000 MG In Water for inj. (sterile) 10 ML @ 600 mls/ hr IVP DAILY [facility] Rx#:[id number] Oral 0 / 0 Output: Right Nephrostomy 300 / 300 Wound Drainage 1595 / 1595 Left Lower Back 175 / 175 Right Lower Back 1420 / 1420 Other: Meal Breakfast Percent of Meal Consumed 0% General appearance: cooperative, no acute distress, thin, no febrile - Head Head exam: Present: atraumatic - ENT ENT exam: Present: mucous membranes moist - Respiratory Respiratory exam: Present: CTAB. Absent: respiratory distress - Cardiovascular Cardiovascular exam: Present: RRR, +S1, +S2 - GI/Abdominal GI/Abdominal exam: Present: normal bowel sounds, soft. Absent: tenderness - Extremities Exam Extremities exam: Present: normal inspection. Absent: calf tenderness - Back Exam Additional comments: bilateral nephrostomy, red tinged urine output - Neurological Exam Neurological exam: Present: alert, oriented X3, no focal deficits, strengths equal and symetr throughout - Psychiatric Psychiatric exam: Present: anxious - Skin Skin exam: Present: dry, intact, normal color, warm Oncology: Obj Data - Labs CBC & Chem 7: 02/02/18 04:25 02/02/18 04:25 - Impressions Impressions Guidance Ultrasound 02/01/18 00:00 IMPRESSION: Successful bilateral percutaneous nephrostomy tube placement D/ / 02/01/2018 13:26:05 Emily Etienne MD / Adrienne Zheng Interpreting Provider: Emily Etienne MD Nephrostomy 02/01/18 00:00 IMPRESSION: Successful bilateral percutaneous nephrostomy tube placement D/ / 02/01/2018 13:26:05 Emily Etienne MD / Adrienne Zheng Interpreting Provider: Emily Etienne MD - ABG Interpretation ABG results: PT/INR, D-dimer PT 10.9 Seconds (9.4-12.1) 01/31/18 14:40 Consult Discharge Plan - Plan Instructions: Acute Kidney Injury (GEN), Nephrostomy Tube Care (GEN) Referrals: Marcelino Patton MD [Partnered Physician] - (Web-request completed 02/03/2018) Robbi Laura MD [Primary Care Provider] - (Web-request completed 02/03/2018) Rico Macedo DO [Partnered Physician] - (Web-request completed 02/03/2018) Prescriptions: RX: Magnesium Oxide 400 mg PO BID 20 Days #40 tablet <Robbi Laura - Last Filed: 02/03/18 12:59> Date of Encounter: 02/01/18 (1) Bladder cancer metastasized to intra-abdominal lymph nodes Status: Acute (2) Obstructive uropathy Status: Acute - Constitutional Vitals: Vital Signs Temp Pulse Resp BP Pulse Ox 02/03/18 07:53 16 96 02/03/18 07:34 98.0 F 98 16 161/94 94 02/03/18 03:35 98.9 F 94 16 141/93 93 02/03/18 00:07 98.9 F 94 16 141/81 96 02/02/18 20:10 98.9 F 105 16 171/95 94 02/02/18 16:38 99.5 F 94 17 159/95 98 Intake and Output 02/03/18 02/03/18 02/03/18 00:59 07:59 15:59 Intake Total 360 / 360 Output Total Balance 360 / 360 Intake: IV Fluids 0.9 % Sodium Chloride 1,000 ML @ 125 mls/hr IVC .Q8H [facility] Rx#: [id number] Oral 360 / 360 Output: Left Nephrostomy Right Nephrostomy Wound Drainage Left Lower Back Right Lower Back Other: Meal Breakfast Percent of Meal Consumed 50% Weight Patient Weight 02/03/18 22:59 Weight 47.3 kg Oncology: Obj Data - Labs CBC & Chem 7: 02/03/18 02:54 02/03/18 02:54 Labs: Laboratory Results - last 24 hr 02/03/18 02/03/18 02/03/18 02:54 02:54 02:54 WBC 5.4 RBC 3.02 L Hgb 9.9 L Hct 29.3 L MCV 97.0 MCH 32.8 MCHC 33.8 RDW 14.7 H Plt Count 420 H MPV 9.1 L Immature Gran % 0.6 Seg Neutrophils % 61.8 Lymphocytes % 17.9 Monocytes % 16.4 Eosinophils % 2.2 Basophils % 1.1 Neutrophils # 3.4 Lymphocytes # 1.0 Monocytes # 0.9 Eosinophils # 0.1 Basophils # 0.1 Sodium 139 Potassium 3.7 Chloride 106 Carbon Dioxide 23 BUN 18 Creatinine 2.73 H Est GFR ( Amer) 22 L Est GFR (Non-Af Amer) 18 L BUN/Creatinine Ratio 7 Glucose 114 H Calculated Osmolality 291 Calcium 8.3 L Magnesium 1.2 L - ABG Interpretation ABG results: PT/INR, D-dimer PT 10.9 Seconds (9.4-12.1) 01/31/18 14:40 Inpatient Charges Provider: Dr. Sam Laura Follow up - Inpatient: [id number] - Attending Attestation I examined this patient and my medical decision-making was reviewed with the Advanced Practice Nurse. I agree with the documented findings, disposition and treatment plan as described except to the extent set forth below. 1. Worsening of bilateral hydronephrosis post bilateral percutaneous nephrostomy tube. Creatinine improved from 9 range to 4.5. I expect continued improvement Once she improves would be able to resume cisplatin-based chemotherapy. If creatinine does not improve enough for chemotherapy considers switching her to immunotherapy. The other option is to try carboplatin-based chemotherapy
[2018-02-01] MEDS: *HR* OxyCODONE Immed Rel 15 MG TABLET PO PRN (23:42)
[2018-02-02] MEDS ORDERED: *HR* LORazepam 0.5 MG TABLET PO ONE (03:39)
[2018-02-02 05:04] LABS: Hematocrit 28.4 % (35.3-44.9); Hemoglobin 9.6 g/dL (11.5-15.4); Mean Corpuscular HGB Conc 33.8 g/dL (31.6-35.5); Mean Corpuscular Hemoglobin 32.7 pg (28.0-33.3); Mean Corpuscular Volume 96.6 fL (83.0-100.0); Mean Platelet Volume 9.3 fL (9.4-12.4); Platelet Count 345 K/mcL (140-400); Red Blood Count 2.94 M/mcL (3.82-4.97); Red Cell Distribution Width 14.2 % (11.5-14.5)
[2018-02-02 05:22] LABS: Calcium 8.5 mg/dL (8.6-10.3); Magnesium 1.6 mg/dL (1.6-2.6); Phosphorous 5.4 mg/dL (2.7-4.5); Potassium 4.1 mEq/L (3.5-5.1)
[2018-02-02] MEDS: *HR* Morphine Sulfate SR (12 HR) 15 MG TABLET.ER PO SCH ×2 (06:37→17:43)
[2018-02-02] MEDS: *HR* Heparin 5,000 UNIT/ML VIAL SQ SCH ×2 (06:37→17:43)
[2018-02-02] MEDS: 0.9 % Sodium Chloride 1,000 ML IVC SCH ×3 (07:11→22:57)
--- NOTE | 2018-02-02 07:31 | Nephrology Progress Note ---
Date of Encounter: 02/02/18 Time of Encounter: 08:30 - Assessment and Plan (1) AYDEN (acute kidney injury) Current Visit: Yes Status: Acute Severe post-renal AYDEN. She was able to receive the bilateral percutaneous nephrostomy tubes and has since made about 3.7 L of UOP for the 24hr period of yesterday -- and about 700 since midnight today. SCr has also trended better. Electrolytes have normalized: she had a post-renal / AYDEN associated hyponatremia. 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 Should carefully follow UOP, and if she were to have any worsening of her polyuria, she could actually become dehydrated/prerenal with hypokalemia and contraction alkalosis being at higher risk s/p relief of the post-obstruction (known as a post-obstructive autodiuresis). Continue to follow a renal protective strategy. I will be available tomorrow if needed. My colleague will be on-call starting on Sunday. Thank you. (2) Hydronephrosis Current Visit: Yes Status: Acute per urology team Qualifiers: Hydronephrosis type: unspecified Qualified Code(s): N13.30 - Unspecified hydronephrosis (3) Bladder cancer metastasized to intra-abdominal lymph nodes Current Visit: Yes Status: Acute per oncology team (4) Hyponatremia Current Visit: Yes Status: Acute Improved. See above (5) Obstructive uropathy Current Visit: Yes Status: Acute See above Subjective Principal diagnosis: AYDEN Interval history: The patient was seen/examined. She did not affirm anymore N/V and stated that her appetite has returned. She denied CP or shortness of breath or dizziness. She did not affirm symptoms that could be related to dehydration. Objective - Vital Signs Vital signs: Vital Signs Temp Pulse Resp BP Pulse Ox 02/02/18 07:06 98.2 F 91 17 146/94 91 02/02/18 04:54 98.5 F 100 17 153/91 95 02/02/18 00:38 98.1 F 105 16 158/86 92 02/01/18 20:06 98.7 F 111 15 152/88 94 02/01/18 16:44 99.5 F 115 20 181/98 95 02/01/18 12:05 16 171/99 96 02/01/18 11:50 100 18 153/88 98 02/01/18 11:35 106 16 133/71 91 02/01/18 11:20 97.5 F L 16 145/87 88 02/01/18 11:04 20 156/93 02/01/18 10:54 99 19 160/111 93 02/01/18 10:49 97 22 155/103 91 02/01/18 10:45 96 23 171/101 90 02/01/18 10:31 101 13 183/121 94 Intake and Output 02/01/18 02/01/18 02/02/18 15:59 23:59 07:59 Intake Total 2009 1000 / 1000 1000 / 1000 Output Total 1895 / 1895 1850 / 1850 700 / 700 Balance 115 / 115 -850 / -850 300 / 300 Intake: IV Fluids 2009 1000 / 1000 1000 / 1000 0.9 % Sodium Chloride 1,000 ML 1999 / 1999 1000 / 1000 1000 / 1000 @ 125 mls/hr IVC .Q8H [facility] Rx#: [id number] Rocephin 1,000 MG In Water for inj. (sterile) 10 ML @ 600 mls/ hr IVP DAILY [facility] Rx#:[id number] Oral 0 / 0 Output: Urine 200 / 200 Left Nephrostomy 700 / 700 400 / 400 Right Nephrostomy 300 / 300 1150 / 1150 100 / 100 Wound Drainage 1595 / 1595 Left Lower Back 175 / 175 Right Lower Back 1420 / 1420 Other: Meal Breakfast Percent of Meal Consumed 0% Weight 46.8 kg Patient Weight 02/02/18 23:59 Weight 46.8 kg - General Appearance General appearance: Present: appears started age, cachectic EENT: Present: ATNC, PERRL, mucous membranes moist Neck: Present: supple Respiratory: Present: clear Cardiology: Present: regular rate, regular rhythm, normal S1, normal S2 Gastrointestinal: Present: normoactive bowel sounds, no tenderness Additional Comments: Bilateral percutaneous nephrostomy tubes, with yellow urine noted. Integumentary: Present: no rash, warm and dry Neurologic: Present: no focal deficit, no asterixis, alert and oriented x3 Musculoskeletal: Present: no deformities, no erythema, no cyanosis Psychiatric: Present: mood/affect appropriate, cooperative - Lab 02/02/18 04:25 02/02/18 04:25 Most recent lab results Calcium 8.5 mg/dL (8.6-10.3) L 02/02/18 04:25 Phosphorus 5.4 mg/dL (2.7-4.5) H 02/02/18 04:25 Magnesium 1.6 mg/dL (1.6-2.6) 02/02/18 04:25 Consult Discharge Plan - Plan Referrals: Robbi Laura MD [Primary Care Provider] -
[2018-02-02] MEDS: cefTRIAXone 1,000 MG in Water for inj. (sterile) 20 ML 10 ML IVP SCH (08:26)
[2018-02-02] MEDS: Cholecalciferol (D-3) 1,000 UNIT TABLET PO SCH (08:27)
[2018-02-02] MEDS: *HR* OxyCODONE Immed Rel 15 MG TABLET PO PRN (08:33)
--- NOTE | 2018-02-02 09:24 | Urology Progress Note ---
Date of Encounter: 02/02/18 Time of Encounter: 09:23 - Assessment and Plan (1) Bladder cancer metastasized to intra-abdominal lymph nodes Current Visit: Yes Status: Acute Assessment and plan: 57-year-old woman with metastatic bladder cancer status post bilateral nephrostomy tubes. Creatinine is improving. Continue nephrostomy tubes and urology will follow along. (2) Hydronephrosis Current Visit: Yes Status: Acute Qualifiers: Hydronephrosis type: unspecified Qualified Code(s): N13.30 - Unspecified hydronephrosis Progress Note Narrative: 57-year-old woman with metastatic bladder cancer is seen in follow-up. She had bilateral nephrostomy tubes placed. Urine is draining well from both tubes the right side producing more than the left. Creatinine is improving. Her pain is well-controlled. Objective Initial Vital Signs Temp Pulse Resp BP Pulse Ox 98 F 107 22 162/113 99 01/31/18 11:41 01/31/18 11:41 01/31/18 11:41 01/31/18 11:41 01/31/18 11:41 - General physical appearance Present: well developed, well nourished, no distress - Respiratory Present: normal respiratory effort - Abdomen Present: soft - Genitourinary Present: other (Nephrostomy tubes in good position with clear to light pink urine.) - Labs 02/02/18 04:25 02/02/18 04:25 Diabetes panel 02/02/18 Range/Units 04:25 Sodium 137 (136-145) mEq/L Potassium 4.1 (3.5-5.1) mEq/L Chloride 104 (98-107) mEq/L Carbon Dioxide 22 L (23-29) mEq/L BUN 34 H (6-20) mg/dL Creatinine 4.98 H (0.60-1.20) mg/dL Glucose 106 H (70-105) mg/dL Calcium 8.5 L (8.6-10.3) mg/dL Calcium panel 02/02/18 Range/Units 04:25 Calcium 8.5 L (8.6-10.3) mg/dL Phosphorus 5.4 H (2.7-4.5) mg/dL Pituitary panel 02/02/18 Range/Units 04:25 Sodium 137 (136-145) mEq/L Potassium 4.1 (3.5-5.1) mEq/L Chloride 104 (98-107) mEq/L Carbon Dioxide 22 L (23-29) mEq/L BUN 34 H (6-20) mg/dL Creatinine 4.98 H (0.60-1.20) mg/dL Glucose 106 H (70-105) mg/dL Calcium 8.5 L (8.6-10.3) mg/dL Adrenal panel 02/02/18 Range/Units 04:25 Sodium 137 (136-145) mEq/L Potassium 4.1 (3.5-5.1) mEq/L Chloride 104 (98-107) mEq/L Carbon Dioxide 22 L (23-29) mEq/L BUN 34 H (6-20) mg/dL Creatinine 4.98 H (0.60-1.20) mg/dL Glucose 106 H (70-105) mg/dL Calcium 8.5 L (8.6-10.3) mg/dL Consult Discharge Plan - Plan Referrals: Robbi Laura MD [Primary Care Provider] -
[2018-02-02] MEDS: Tiotropium 18 MCG inhalation IH SCH (09:40)
--- NOTE | 2018-02-02 09:45 | Internal Med Progress Note ---
Hospitalist Progress Note - Encounter Date of Encounter: 02/02/18 Time of Encounter: 08:00 - Subjective Interval History: Had a bout of anxiety attack yesterday which aborted with 1 dose of 0.5mg ativan. Otherwise, urinating well. No fever/chills, N/V, or worsening flank pain. - Exam Vitals: Temp Pulse Resp BP Pulse Ox 98.2 F 91 17 146/94 91 02/02/18 07:06 02/02/18 07:06 02/02/18 07:06 02/02/18 07:06 02/02/18 07:06 Exam: General: Alert and oriented, not in acute distress. Cardiovascular:Normal S1 & S2, No JVD. Pulse regular. Lungs: clear to auscultation, no wheezes/rales Abdomen:Soft, non-tender, no rigidity. B/L nephrostomy tubes draining clear u rine. Extremities:No deformity or swelling Neurological:Normal cognition and motor skills. Non-focal - Assessment and Plan (1) Obstructive uropathy Current Visit: Yes Status: Acute Assessment and Plan: Due to met urothelial cancer acute on chronic on the left and acute R hydronephrosis underwent b/l nephrostomy tube insertion yesterday uneventfully, POD1 Cr improving significantly with good urine output, monitor for post-obstructive autodiuresis follow with Urology and nephrology (2) Hydronephrosis Current Visit: Yes Status: Acute Assessment and Plan: as above (3) AYDEN (acute kidney injury) Current Visit: Yes Status: Acute Assessment and Plan: likely due to obstructive uropathy as above +/- pre-renal improving after bilateral nephrostomy tubes as above continue IV hydration, tx for presumed UTI -> complete abx today avoid nephrotoxic medications die cleaner input appreciated monitor Cr and urine output (4) Metastatic urothelial carcinoma Current Visit: Yes Status: Acute Assessment and Plan: Oncology input appreciated on palliative chemo currently, may switch to 2nd line immunotherapy outpatent follow up overall prognosis remains poor (5) Severe protein-calorie malnutrition Current Visit: Yes Status: Chronic Assessment and Plan: a/w low prealbumin level nutrition consult (6) T12 vertebral fracture Current Visit: Yes Status: Acute Assessment and Plan: Due to metastasis PT / OT Pain management DVT Prophylaxis: SQ heparin - Time Spent with Patient Total time spent is greater than 50% in coordination of care (as documented) at patient's floor/unit and/or counseling patient: Plan of Care Discussed with: patient Internal Medicine: Result - Labs CBC & Chem 7: 02/02/18 04:25 02/02/18 04:25 Labs: Short CBC 02/02/18 Range/Units 04:25 WBC 7.1 (4.3-11.1) K/mcL Hgb 9.6 L (11.5-15.4) g/dL Hct 28.4 L (35.3-44.9) % Plt Count 345 (140-400) K/mcL BMP 02/02/18 04:25 Sodium 137 Potassium 4.1 Chloride 104 Carbon Dioxide 22 L BUN 34 H Creatinine 4.98 H Glucose 106 H Calcium 8.5 L - ABG Interpretation ABG results: PT/INR, D-dimer PT 10.9 Seconds (9.4-12.1) 01/31/18 14:40 - Impressions Impressions Guidance Ultrasound 02/01/18 00:00 IMPRESSION: Successful bilateral percutaneous nephrostomy tube placement D/ 02/01/2018 13:26:05 Emily Etienne MD / Adrienne Zheng Interpreting Provider: Emily Etienne MD Nephrostomy 02/01/18 00:00 IMPRESSION: Successful bilateral percutaneous nephrostomy tube placement D/ 02/01/2018 13:26:05 Emily Etienne MD / Adrienne Zheng Interpreting Provider: Emily Etienne MD Consult Discharge Plan - Plan Referrals: Robbi Laura MD [Primary Care Provider] - (2) Hydronephrosis Qualifiers: Hydronephrosis type: unspecified Qualified Code(s): N13.30 - Unspecified hydronephrosis (6) T12 vertebral fracture Qualifiers: Encounter type: initial encounter Fracture type: closed Qualified Code(s): S22.089A - Unspecified fracture of T11-T12 vertebra, initial encounter for closed fracture
[2018-02-03 03:27] LABS: Basophils # 0.1 K/mcL (0.0-0.2); Basophils % 1.1 %; Eosinophils # 0.1 K/mcL (0.0-0.6); Eosinophils % 2.2 %; Hematocrit 29.3 % (35.3-44.9); Hemoglobin 9.9 g/dL (11.5-15.4); Immature Granulocytes % 0.6 % (0-4); Lymphocytes % 17.9 %; Mean Corpuscular HGB Conc 33.8 g/dL (31.6-35.5); Mean Corpuscular Hemoglobin 32.8 pg (28.0-33.3); Mean Platelet Volume 9.1 fL (9.4-12.4); Monocytes # 0.9 K/mcL (0.0-1.3); Monocytes % 16.4 %; Neutrophils # 3.4 K/mcL (1.6-8.9); Platelet Count 420 K/mcL (140-400); Red Blood Count 3.02 M/mcL (3.82-4.97); Red Cell Distribution Width 14.7 % (11.5-14.5); Segmented Neutrophils % 61.8 %
[2018-02-03 03:45] LABS: Potassium 3.7 mEq/L (3.5-5.1)
[2018-02-03 03:46] LABS: Calcium 8.3 mg/dL (8.6-10.3)
[2018-02-03] MEDS: *HR* Heparin 5,000 UNIT/ML VIAL SQ SCH (05:58)
[2018-02-03] MEDS: *HR* Morphine Sulfate SR (12 HR) 15 MG TABLET.ER PO SCH (05:59)
[2018-02-03] MEDS: 0.9 % Sodium Chloride 1,000 ML IVC SCH (06:01)
[2018-02-03 07:35] VITALS: BP 161/94
[2018-02-03] MEDS: Cholecalciferol (D-3) 1,000 UNIT TABLET PO SCH (07:38)
--- NOTE | 2018-02-03 07:42 | Urology Progress Note ---
Date of Encounter: 02/03/18 Time of Encounter: 07:40 - Assessment and Plan (1) Bladder cancer metastasized to intra-abdominal lymph nodes Current Visit: Yes Status: Acute Assessment and plan: Doing well after bilateral nephrostomy tube placement. Creatinine improving. Replete Magnesium. Continue nephrostomy tubes. Bladder cancer management per oncology. We will consider antegrade stents as an outpatient. (2) Hydronephrosis Current Visit: Yes Status: Acute Qualifiers: Hydronephrosis type: unspecified Qualified Code(s): N13.30 - Unspecified hydronephrosis Progress Note Narrative: Doing well after bilateral nephrostomy tube placements. Right tube is clear. Left is pink. Pain is controlled. Objective Initial Vital Signs Temp Pulse Resp BP Pulse Ox 98 F 107 22 162/113 99 01/31/18 11:41 01/31/18 11:41 01/31/18 11:41 01/31/18 11:41 01/31/18 11:41 - General physical appearance Present: well developed, well nourished, no distress - Respiratory Present: normal respiratory effort - Abdomen Present: soft - Genitourinary Urine Appearance: Present: Hematuria (Right neph tube with clear urine. Left neph tube with cranberry urine.) - Labs 02/03/18 02:54 02/03/18 02:54 Diabetes panel 02/03/18 Range/Units 02:54 Sodium 139 (136-145) mEq/L Potassium 3.7 (3.5-5.1) mEq/L Chloride 106 (98-107) mEq/L Carbon Dioxide 23 (23-29) mEq/L BUN 18 (6-20) mg/dL Creatinine 2.73 H (0.60-1.20) mg/dL Glucose 114 H (70-105) mg/dL Calcium 8.3 L (8.6-10.3) mg/dL Calcium panel 02/03/18 Range/Units 02:54 Calcium 8.3 L (8.6-10.3) mg/dL Pituitary panel 02/03/18 Range/Units 02:54 Sodium 139 (136-145) mEq/L Potassium 3.7 (3.5-5.1) mEq/L Chloride 106 (98-107) mEq/L Carbon Dioxide 23 (23-29) mEq/L BUN 18 (6-20) mg/dL Creatinine 2.73 H (0.60-1.20) mg/dL Glucose 114 H (70-105) mg/dL Calcium 8.3 L (8.6-10.3) mg/dL Adrenal panel 02/03/18 Range/Units 02:54 Sodium 139 (136-145) mEq/L Potassium 3.7 (3.5-5.1) mEq/L Chloride 106 (98-107) mEq/L Carbon Dioxide 23 (23-29) mEq/L BUN 18 (6-20) mg/dL Creatinine 2.73 H (0.60-1.20) mg/dL Glucose 114 H (70-105) mg/dL Calcium 8.3 L (8.6-10.3) mg/dL Consult Discharge Plan - Plan Referrals: Robbi Laura MD [Primary Care Provider] -
[2018-02-03] MEDS: Tiotropium 18 MCG inhalation IH SCH (07:52)
--- NOTE | 2018-02-03 08:42 | Nephrology Progress Note ---
Date of Encounter: 02/03/18 Time of Encounter: 10:15 - Assessment and Plan (1) AYDEN (acute kidney injury) Status: Acute AYDEN is nicely correcting. Severe post-renal AYDEN. She was able to receive the bilateral percutaneous nephrostomy tubes. Monitor electrolytes and replete. Hydration to match I/Os recommended. No indications for [employer] at this time. Will sign-off. Thank you for having consulted the [facility]. Discussed with hospitalist on the above strategy to help prevent electrolyte loss and need for a BMP soon after discharge and then to follow up with [facility] hrology in 2-4 weeks. Continue to follow a renal protective strategy. Thank you. (2) Hydronephrosis Status: Acute Qualifiers: Hydronephrosis type: unspecified Qualified Code(s): N13.30 - Unspecified hydronephrosis (3) Bladder cancer metastasized to intra-abdominal lymph nodes Status: Acute (4) Hyponatremia Status: Acute (5) Obstructive uropathy Status: Acute Subjective Principal diagnosis: AYDEN Interval history: The patient was seen/examined. She did not affirm any new major complaints. She voiced that she hopes to discharge soon. Objective - Vital Signs Vital signs: Vital Signs Temp Pulse Resp BP Pulse Ox 02/03/18 07:53 16 96 02/03/18 07:34 98.0 F 98 16 161/94 94 02/03/18 03:35 98.9 F 94 16 141/93 93 02/03/18 00:07 98.9 F 94 16 141/81 96 02/02/18 20:10 98.9 F 105 16 171/95 94 02/02/18 16:38 99.5 F 94 17 159/95 98 02/02/18 11:05 98.0 F 97 17 148/79 91 02/02/18 09:55 17 91 Intake and Output 02/03/18 02/03/18 02/03/18 00:59 07:59 15:59 Intake Total 360 / 360 Output Total Balance 360 / 360 Intake: IV Fluids 0.9 % Sodium Chloride 1,000 ML @ 125 mls/hr IVC .Q8H [facility] Rx#: [id number] Oral 360 / 360 Output: Left Nephrostomy Right Nephrostomy Wound Drainage Left Lower Back Right Lower Back Other: Meal Breakfast Percent of Meal Consumed 50% Weight Patient Weight 02/03/18 22:59 Weight 47.3 kg - General Appearance Exam: General appearance: Present: appears started age, cachectic EENT: Present: ATNC, PERRL, mucous membranes moist Neck: Present: supple Respiratory: Present: clear Cardiology: Present: regular rate, regular rhythm, normal S1, normal S2 Gastrointestinal: Present: normoactive bowel sounds, no tenderness Additional Comments: Bilateral percutaneous nephrostomy tubes, with yellow urine noted. Integumentary: Present: no rash, warm and dry Neurologic: Present: no focal deficit, no asterixis, alert and oriented x3 Musculoskeletal: Present: no deformities, no erythema, no cyanosis Psychiatric: Present: mood/affect appropriate, cooperative - Lab 02/03/18 02:54 02/03/18 02:54 Most recent lab results Calcium 8.3 mg/dL (8.6-10.3) L 02/03/18 02:54 Phosphorus 5.4 mg/dL (2.7-4.5) H 02/02/18 04:25 Magnesium 1.2 mg/dL (1.6-2.6) L 02/03/18 02:54 Consult Discharge Plan - Plan Instructions: Acute Kidney Injury (GEN), Nephrostomy Tube Care (GEN) Referrals: Marcelino Patton MD [Partnered Physician] - (Web-request completed 02/03/2018) Robbi Laura MD [Primary Care Provider] - (Web-request completed 02/03/2018) Rico Macedo DO [Partnered Physician] - (Web-request completed 02/03/2018) Prescriptions: Magnesium Oxide 400 mg PO BID 20 Days #40 tablet
--- NOTE | 2018-02-03 09:13 | Discharge Summary ---
- NOTES TO OUTPATIENT PROVIDER Notes to Outpatient Provider: Patient with history of metastatic urothelial cancer was admitted for AYDEN secondary to obstructive uropathy with bilateral hydronephrosis. Underwent bilateral nephrostomy tube insertion on 02/01 uneventfully with improvement in her Cr from 7.74 -> 2.73. She is advised to measure her output from her both nephrostomy tubes carefully to monitor for post-obstructive autodiuresis. She will have follow up with both Urology and Nephrology with repeat BMP/Mg tomorrow. Orders not resulted at time of discharge: Pending orders 02/01/18 12:05 Culture,Urine [RM] Routine Date of Encounter: 02/03/18 Time of Encounter: 07:30 - Discharge Diagnosis (1) Obstructive uropathy Priority: Secondary Status: Acute (2) Hydronephrosis Priority: Secondary Status: Acute Qualifiers: Hydronephrosis type: unspecified Qualified Code(s): N13.30 - Unspecified hydronephrosis (3) AYDEN (acute kidney injury) Priority: Primary Status: Acute (4) Metastatic urothelial carcinoma Priority: Secondary Status: Acute (5) Severe protein-calorie malnutrition Priority: Secondary Status: Chronic (6) T12 vertebral fracture Priority: Secondary Status: Acute Qualifiers: Encounter type: initial encounter Fracture type: closed Qualified Code(s): S22.089A - Unspecified fracture of T11-T12 vertebra, initial encounter for closed fracture Hospital course: Ms. Eldridge is a 57 year old female with history of metastatic urothelial cancer was admitted for AYDEN secondary to obstructive uropathy with bilateral hydronephrosis. Underwent bilateral nephrostomy tube insertion on 02/01 uneventfully with improvement in her Cr from 7.74 -> 2.73. She is advised to measure her output from her both nephrostomy tubes carefully to monitor for post-obstructive autodiuresis. She will have follow up with both Urology and Nephrology with repeat BMP/Mg tomorrow. Discharge discussed with: patient, nurse, senior solutions workflow consultant - Time Spent with Patient Total time spent providing and/or coordinating discharge services: 34 mins - Discharge Medications Prescriptions: Magnesium Oxide 400 mg PO BID 20 Days #40 tablet Home Medications: Albuterol Sulfate [Ventolin Hfa] 2 puff IH Q6H PRN 11/20/17 [History] Fluticasone Propionate Nasal [Flonase] 1 spr NS DAILY PRN 11/20/17 [History] Loratadine [Claritin] 10 mg PO DAILY PRN 11/20/17 [History] Tiotropium [place] [Spiriva Respimat] 1 puff IH DAILY 11/20/17 [History] Morphine Sulfate SR (12 HR) [MS Contin] 1 tab PO Q12HR 30 Days #60 tab 12/28/17 [Rx] Magic Mouthwash 5 ml PO Q4H PRN #240 ml 01/03/18 [Rx] Ondansetron ODT [Zofran ODT] 4 mg SL Q6HR #20 tab.rapdis 01/03/18 [Rx] Prochlorperazine Maleate [Compazine] 10 mg PO Q6HR PRN #30 tablet 01/03/18 [Rx] Ondansetron [Zofran] 8 mg PO Q8HR PRN #30 tablet 01/10/18 [Rx] Cholecalciferol (Vitamin D3) [Vitamin D3] 50,000 unit PO QWEEK #12 capsule 01/21/18 [Rx] Omeprazole 20 mg PO DAILY 01/31/18 [History] Oxycodone HCl [Roxybond] 15 mg PO Q8H PRN 30 Days #90 tablet.orl 01/31/18 [Rx] Magnesium Oxide 400 mg PO BID 20 Days #40 tablet 02/03/18 [Rx] Allergies/Adverse Reactions: Allergy/AdvReac Type Severity Reaction Status Date / Time adhesive Allergy Unknown Hives Verified 01/31/18 13:26 Sulfa (Sulfonamide Allergy Unknown Hives Verified 01/31/18 13:26 Antibiotics) Date of admission: 01/31/18 16:44 Primary care physician: Robbi Laura Consults: 01/31/18 14:13 Consult to Nephrology [CONS] Stat Consulting Provider: [facility]/KATERINA/MICHAELLE/SOPHIA Reason for Consult: bladder cancer, elevated Cr Time Notified: 14:13 Call Completed: Yes Consult to Urology [CONS] Stat Consulting Provider: Urology Katy Reason for Consult: bladder cancer, elevated Cr Time Notified: 14:13 Call Completed: Yes 01/31/18 14:53 Consult to Oncology Hematology [CONS] Stat Consulting Provider: Robbi Laura Reason for Consult: worsening bladder cancer Time Notified: 14:55 Call Completed: Yes 01/31/18 15:37 Consult to Interventional Radiology [CONS] Stat Consulting Provider: Radiology Interventional Cols Reason for Consult: severe bilateral hydronephrosis, metastatic urothelial cancer Time Notified: 15:38 Call Completed: No 02/01/18 07:13 Consult to Interventional Radiology [CONS] Routine Consulting Provider: Radiology Interventional Cols Reason for Consult: Please evaluate for placing a Temporary HD catheter to start HD today. Call Completed: Yes 02/01/18 07:15 Consult to Dialysis [CONS] ONCE 02/01/18 11:30 Consult to Nutrition [CONS] Routine Comment: Consulting Provider: NUTRITION Reason for Dietary Consult: Diet Education - Constitutional Vitals: Temp Pulse Resp BP Pulse Ox 98.0 F 98 16 161/94 96 02/03/18 07:34 02/03/18 07:34 02/03/18 07:53 02/03/18 07:34 02/03/18 07:53 General appearance: Present: cooperative, A&O X 3, answers questions appropriately Exam: General: Alert and oriented, not in acute distress. Cardiovascular:Normal S1 & S2, No JVD. Pulse regular. Lungs: clear to auscultation, no wheezes/rales Abdomen:Soft, non-tender, no rigidity. B/L nephrostomy tubes draining straw- colored urine. Extremities:No deformity or swelling Neurological:Normal cognition and motor skills. Non-focal - Patient Status Disposition: Home, Self-Care Condition: Fair Functional capacity at discharge: independent ambulation Overall status at discharge: patient is progressing back to baseline - Discharge Instructions Follow Up With: Robbi Laura MD [Primary Care Provider] - Rico Macedo DO [Partnered Physician] - Marcelino Patton MD [Partnered Physician] - - Diet and Activity Activity: resume usual activities as tolerated Diet: advance to your usual diet
== END 2018-02-03 11:13 | disposition home or self-care (01) | DRG 463 ==
LOC: EMEROOARM 11:37 → SUATTDRO 16:44 → 2ANU 16:44
PROVIDERS: ADMIT Internal Medicine; ATTEND Internal Medicine

== ENCOUNTER 2020-10-25 23:06 | Inpatient (IN) ==
[2020-10-26] MEDS ORDERED: Naloxone 0.4 MG/ML INJ IVP PRN (07:32)
[2020-10-26 08:25] LABS: ABG Base Excess 1 mEq/L (-2 to 3); ABG HCO3 27 mEq/L (21-27); ABG Oxygen Saturation 99 % (95-98); ABG PCO2 47 mmHg (35-45); ABG PH 7.37 pH Units (7.32-7.45); ABG PO2 146 mmHg (85-104); ABG TCO2 29 mEq/L (20-26); Blood Gas Modality NIV
[2020-10-26] MEDS ORDERED: Albuterol 2.5 MG/3 ML NEBULIZER IH PRN (09:00)
[2020-10-26 10:05] LABS: Hematocrit 33.7 % (35.3-44.9); Hemoglobin 11.4 g/dL (11.5-15.4); Mean Corpuscular HGB Conc 33.8 g/dL (31.6-35.5); Mean Corpuscular Hemoglobin 35.1 pg (28.0-33.3); Mean Corpuscular Volume 103.7 fL (83.0-100.0); Monocytes # 0.2 K/mcL (0.0-1.3); Platelet Count 267 K/mcL (140-400); Red Blood Count 3.25 M/mcL (3.82-4.97); Red Cell Distribution Width 13.1 % (11.5-14.5); White Blood Count 5.4 K/mcL (4.3-11.1)
[2020-10-26 10:12] LABS: INR 1.2; Prothrombin Time 13.4 Seconds (9.4-12.1)
[2020-10-26 10:44] LABS: Lymphocytes # 0.3 K/mcL (0.6-4.6); Neutrophils # 4.9 K/mcL (1.6-8.9); Platelet Estimate Normal (Normal)
[2020-10-26] MEDS ORDERED: Ampicillin/Sulbactam 1,500 MG in 0.9 % Sodium Chloride Mini Bag 100 ML IVPB ONE (11:04)
[2020-10-26] MEDS ORDERED: 0.9 % Sodium Chloride 500 ML ONE ×2 (11:04→11:16)
[2020-10-26] MEDS ORDERED: Lidocaine/EPI 1:100k 1% 50 ML VIAL ONE (11:04)
[2020-10-26] MEDS: Ipratropium/Albuterol Neb 3 ML IH SCH ×3 (11:37→19:45)
[2020-10-26] MEDS: cefTRIAXone 1,000 MG in Water for inj. (sterile) 10 ML IVP SCH (12:39)
[2020-10-26] MEDS: Azithromycin 500 MG in 0.9 % Sodium Chloride 250 ML IVPB SCH (12:40)
[2020-10-26 12:59] LABS: BUN/Creatinine Ratio 40 (6-26); Blood Urea Nitrogen 32 mg/dL (6-20); Calcium 8.7 mg/dL (8.6-10.3); Carbon Dioxide 24 mEq/L (23-29); Chloride 103 mEq/L (98-107); Glucose 84 mg/dL (70-105); Osmolality,Calculated 288 (280-300); Potassium 4.5 mEq/L (3.5-5.1); Sodium 136 mEq/L (136-145); eGFR For African Americans > 60 (> 60); eGFR For Non-African Americans > 60 (> 60)
[2020-10-26] MEDS ORDERED: Ringers Solution, Lactated 1,000 ML IVC SCH (14:15)
[2020-10-26] MEDS ORDERED: D5% in Water 1,000 ML IVC PRN (17:49)
[2020-10-26] MEDS ORDERED: *HR* Dextrose 50 % in Water (Vial) 50 ML VIAL IVP PRN (17:49)
[2020-10-26] MEDS ORDERED: Dextrose Gel 15 GM/37.5 ML TUBE PO PRN ×2 (17:49)
[2020-10-26] MEDS ORDERED: Fluticasone Propionate Nasal 50 MCG/SPRAY BOTTLE NS PRN (18:20)
[2020-10-26] MEDS: D5% in 0.45% NACL 1,000 ML IVC SCH (18:21)
[2020-10-26] MEDS: Nystatin SUSP 5 ML UD.LIQ PO SCH (20:37)
[2020-10-27] MEDS: Ipratropium/Albuterol Neb 3 ML IH SCH ×7 (00:04→23:24)
[2020-10-27 01:25] LABS: Hematocrit 28.8 % (35.3-44.9); Hemoglobin 10.1 g/dL (11.5-15.4); Mean Corpuscular HGB Conc 35.1 g/dL (31.6-35.5); Mean Corpuscular Hemoglobin 35.7 pg (28.0-33.3); Mean Corpuscular Volume 101.8 fL (83.0-100.0); Mean Platelet Volume 9.3 fL (9.4-12.4); Platelet Count 250 K/mcL (140-400); Red Blood Count 2.83 M/mcL (3.82-4.97)
[2020-10-27 01:34] LABS: White Blood Count 13.2 K/mcL (4.3-11.1)
[2020-10-27 01:46] LABS: BUN/Creatinine Ratio 43 (6-26); Blood Urea Nitrogen 29 mg/dL (6-20); Calcium 8.4 mg/dL (8.6-10.3); Carbon Dioxide 25 mEq/L (23-29); Chloride 104 mEq/L (98-107); Glucose 159 mg/dL (70-105); Lymphocytes # 0.5 K/mcL (0.6-4.6); Monocytes # 0.5 K/mcL (0.0-1.3); Neutrophils # 11.6 K/mcL (1.6-8.9); Osmolality,Calculated 291 (280-300); Platelet Estimate Normal (Normal); Potassium 3.7 mEq/L (3.5-5.1); Sodium 136 mEq/L (136-145); eGFR For African Americans > 60 (> 60); eGFR For Non-African Americans > 60 (> 60)
[2020-10-27] MEDS: D5% in 0.45% NACL 1,000 ML IVC SCH (04:19)
[2020-10-27] MEDS: *HR* Enoxaparin 30 MG/0.3 ML SYRINGE SQ SCH (06:44)
[2020-10-27] MEDS: Nystatin SUSP 5 ML UD.LIQ PO SCH ×4 (08:03→21:21)
[2020-10-27] MEDS: cefTRIAXone 1,000 MG in Water for inj. (sterile) 10 ML IVP SCH (08:04)
[2020-10-27] MEDS: Azithromycin 500 MG in 0.9 % Sodium Chloride 250 ML IVPB SCH (08:04)
[2020-10-27] MEDS: *HR* OxyCODONE Immed Rel 15 MG TABLET PO PRN ×2 (13:26→21:30)
[2020-10-28] MEDS: Ipratropium/Albuterol Neb 3 ML IH SCH ×6 (03:12→23:42)
[2020-10-28] MEDS: *HR* Enoxaparin 30 MG/0.3 ML SYRINGE SQ SCH (04:50)
[2020-10-28] MEDS: Nystatin SUSP 5 ML UD.LIQ PO SCH ×4 (08:45→20:39)
[2020-10-28] MEDS: cefTRIAXone 1,000 MG in Water for inj. (sterile) 10 ML IVP SCH (08:46)
[2020-10-28] MEDS: Azithromycin 500 MG in 0.9 % Sodium Chloride 250 ML IVPB SCH (08:47)
[2020-10-28] MEDS: Piperacillin/Tazobactam 3.375 GM in 0.9 % Sodium Chloride Mini Bag 100 ML IVPB SCH (15:49)
[2020-10-28] MEDS: *HR* OxyCODONE Immed Rel 15 MG TABLET PO PRN (16:03)
[2020-10-29] MEDS: Piperacillin/Tazobactam 3.375 GM in 0.9 % Sodium Chloride Mini Bag 100 ML IVPB SCH ×3 (00:04→16:46)
[2020-10-29] MEDS: Ipratropium/Albuterol Neb 3 ML IH SCH ×6 (04:16→23:33)
[2020-10-29] MEDS: *HR* Enoxaparin 30 MG/0.3 ML SYRINGE SQ SCH (04:53)
[2020-10-29] MEDS: Nystatin SUSP 5 ML UD.LIQ PO SCH ×4 (07:25→20:30)
[2020-10-29] MEDS: Azithromycin 500 MG in 0.9 % Sodium Chloride 250 ML IVPB SCH (07:27)
[2020-10-29] MEDS: *HR* OxyCODONE Immed Rel 15 MG TABLET PO PRN (07:33)
[2020-10-29] MEDS: *HR* OxyCODONE ER (12 HR) 10 MG TABLET PO SCH (17:14)
[2020-10-30] MEDS: Piperacillin/Tazobactam 3.375 GM in 0.9 % Sodium Chloride Mini Bag 100 ML IVPB SCH ×3 (00:44→15:51)
[2020-10-30] MEDS: Ipratropium/Albuterol Neb 3 ML IH SCH ×6 (03:31→23:40)
[2020-10-30] MEDS: *HR* Enoxaparin 30 MG/0.3 ML SYRINGE SQ SCH (06:26)
[2020-10-30] MEDS: *HR* OxyCODONE ER (12 HR) 10 MG TABLET PO SCH ×2 (06:28→17:24)
[2020-10-30] MEDS: Nystatin SUSP 5 ML UD.LIQ PO SCH ×4 (08:20→19:53)
[2020-10-30] MEDS: Azithromycin 500 MG in 0.9 % Sodium Chloride 250 ML IVPB SCH (08:21)
[2020-10-31] MEDS: Piperacillin/Tazobactam 3.375 GM in 0.9 % Sodium Chloride Mini Bag 100 ML IVPB SCH ×4 (00:51→23:28)
[2020-10-31] MEDS: Ipratropium/Albuterol Neb 3 ML IH SCH ×6 (03:33→23:53)
[2020-10-31] MEDS: *HR* Enoxaparin 30 MG/0.3 ML SYRINGE SQ SCH (05:40)
[2020-10-31] MEDS: *HR* OxyCODONE ER (12 HR) 10 MG TABLET PO SCH ×2 (05:41→19:01)
[2020-10-31] MEDS: Azithromycin 500 MG in 0.9 % Sodium Chloride 250 ML IVPB SCH (08:41)
[2020-10-31] MEDS: Nystatin SUSP 5 ML UD.LIQ PO SCH ×4 (08:42→20:08)
[2020-11-01] MEDS: Ipratropium/Albuterol Neb 3 ML IH SCH ×4 (03:33→15:39)
[2020-11-01] MEDS: *HR* OxyCODONE ER (12 HR) 10 MG TABLET PO SCH (04:59)
[2020-11-01] MEDS: *HR* Enoxaparin 30 MG/0.3 ML SYRINGE SQ SCH (05:01)
[2020-11-01] MEDS: Piperacillin/Tazobactam 3.375 GM in 0.9 % Sodium Chloride Mini Bag 100 ML IVPB SCH (07:35)
[2020-11-01] MEDS: Nystatin SUSP 5 ML UD.LIQ PO SCH ×2 (07:36→12:39)
[2020-11-01] MEDS ORDERED: Azithromycin 500 MG in 0.9 % Sodium Chloride 250 ML IVPB SCH (13:00)
[2020-11-01 16:12] VITALS: BP 101/69; PULSE 73; TEMP 97.7; O2SAT 97
[2020-11-01] MEDS ORDERED: *HR* LORazepam 2 MG/ML VIAL IVP ONE (17:12)
== END 2020-11-01 17:03 | DRG 139 ==
LOC: 2NNU → SUATTDRO 10-26 13:15 → 3BNU 10-27 20:58
PROVIDERS: ADMIT Family Medicine; ATTEND Internal Medicine